=== PATIENT | female | born 1970 | race Caucasian/White ===

== ENCOUNTER 2016-08-14 03:45 | Inpatient (IN) | payer MEDICAID ==
[~2016-08-14] VITALS: Ht 162.6 cm; Wt 91.1 kg
[2016-08-14] MEDS ORDERED: SODIUM CHLORIDE FLUSH 10ML SYR IVF ONE (05:00)
[2016-08-14] MEDS ORDERED: AMPICILLIN/SULBACTAM 3 GM in SODIUM CHLORIDE 0.9% 100 ML IVPB ONE (05:00)
[2016-08-14 05:57] LABS: HEMOGLOBIN 12.5 g/dL (11.7-16.4)
[2016-08-14] MEDS ORDERED: SODIUM CHLORIDE 0.9% 1,000 ML IV ONE (06:57)
[2016-08-14] MEDS ORDERED: SODIUM CHLORIDE 0.9% 1,000ML IVBOLUS ONE (07:00)
[2016-08-14 07:52] LABS: BLOOD UREA NITROGEN 10 mg/dL (7-18)
[2016-08-14] MEDS ORDERED: SODIUM CHLORIDE FLUSH 10ML SYR IVF PRN (08:00)
[2016-08-14 09:49] VITALS: BP 148/89
[2016-08-14] MEDS: ENOXAPARIN 40 MG/0.4 ML SQ SCH (11:30)
[2016-08-14] MEDS ORDERED: DOCUSATE 100 MG CAPSULE PO PRN (11:30)
[2016-08-14] MEDS ORDERED: ONDANSETRON 2MG/ML, 2ML IVP PRN (11:30)
[2016-08-14] MEDS ORDERED: LABETALOL 5MG/ML, 20ML IV PRN (11:30)
[2016-08-14] MEDS ORDERED: ONDANSETRON ODT 4 MG PO PRN (11:30)
[2016-08-14] MEDS ORDERED: POLYETHYLENE GLYCOL 17 GM PACKET PO PRN (11:30)
[2016-08-14] MEDS ORDERED: GUAIFENESIN/DM 200-20MG, 10ML UDC PO PRN (11:30)
[2016-08-14] MEDS: SODIUM CHLORIDE 0.9% 1,000 ML IV SCH ×2 (12:18→21:26)
[2016-08-14] MEDS: AMPICILLIN/SULBACTAM 3 GM in SODIUM CHLORIDE 0.9% 100 ML IV SCH ×3 (12:40→23:47)
[2016-08-14 13:11] LABS: C-REACTIVE PROTEIN, QUANT 0.86 mg/dL (0.02-0.49)
[2016-08-14 13:12] LABS: DAU SCREEN DISCLAIMER
[2016-08-14 13:16] LABS: PATH.CAST-FLAG NOT PRESENT; SPERM-FLAG NOT PRESENT; SRC-FLAG NOT PRESENT; XTAL-FLAG NOT PRESENT; YLC-FLAG NOT PRESENT
[2016-08-14 13:18] VITALS: BP 136/87
[2016-08-14] MEDS: NICOTINE 21 MG/24 HR PATCH.TD24 TD SCH (19:47)
[2016-08-14 19:55] VITALS: BP 126/78
[2016-08-14] MEDS: FAMOTIDINE 20 MG/2 ML IV SCH (21:54)
[2016-08-15 01:56] VITALS: BP 130/80
[2016-08-15] MEDS: AMPICILLIN/SULBACTAM 3 GM in SODIUM CHLORIDE 0.9% 100 ML IV SCH ×4 (05:44→23:33)
[2016-08-15] MEDS: SODIUM CHLORIDE 0.9% 1,000 ML IV SCH ×2 (05:45→17:54)
[2016-08-15 06:07] LABS: BLOOD UREA NITROGEN 17 mg/dL (7-18)
[2016-08-15 07:12] VITALS: BP 144/74
[2016-08-15] MEDS ORDERED: CYANOCOBALAMIN 1,000 MCG/ML, 1ML IM ONE (07:30)
[2016-08-15] MEDS: FAMOTIDINE 20 MG/2 ML IV SCH ×2 (09:28→20:18)
[2016-08-15] MEDS: ENOXAPARIN 40 MG/0.4 ML SQ SCH (11:51)
[2016-08-15 13:56] VITALS: BP 143/81
[2016-08-15 18:36] VITALS: BP 144/80
[2016-08-15] MEDS: NICOTINE 21 MG/24 HR PATCH.TD24 TD SCH (20:18)
[2016-08-16 00:43] VITALS: BP 111/68
[2016-08-16] MEDS: AMPICILLIN/SULBACTAM 3 GM in SODIUM CHLORIDE 0.9% 100 ML IV SCH (05:09)
[2016-08-16] MEDS: SODIUM CHLORIDE 0.9% 1,000 ML IV SCH (05:09)
[2016-08-16] MEDS ORDERED: CYANOCOBALAMIN 1,000 MCG TABLET PO SCH (07:30)
== END 2016-08-16 07:25 | disposition left against medical advice (07) | DRG 603 ==
LOC: ED 07:06 → EDIP 07:45 → 4WST 09:38
PROVIDERS: ADMIT Hospitalist; ATTEND Hospitalist
PROC: 0T9B70Z Drainage of Bladder with Drainage Device, Via Natural or Artificial Opening (ICD-10-PCS; principal; 2016-08-14)
DX: L03.115 Cellulitis of right lower limb (principal); E44.1 Mild protein-calorie malnutrition; N39.0 Urinary tract infection, site not specified; F31.9 Bipolar disorder, unspecified; G60.0 Hereditary motor and sensory neuropathy; M19.90 Unspecified osteoarthritis, unspecified site; D64.9 Anemia, unspecified; L03.116 Cellulitis of left lower limb; R62.50 Unspecified lack of expected normal physiological development in childhood; F17.210 Nicotine dependence, cigarettes, uncomplicated; R73.9 Hyperglycemia, unspecified; F15.10 Other stimulant abuse, uncomplicated; Z53.21 Procedure and treatment not carried out due to patient leaving prior to being seen by health care provider; Z88.1 Allergy status to other antibiotic agents; Z68.34 Body mass index [BMI] 34.0-34.9, adult
CPT/HCPCS: 36415; 70450; 71010; 80048; 80061; 80307; 81001; 82040; 82140; 82607; 82746; 82962; 83036; 83605; 83735; 84100; 84145; 84439; 84443; 85025; 85651; 86140; 87040; 87086; 96365; 96372; J0295; J1650; J3420; J7030; S0028

== ENCOUNTER 2016-12-31 01:49 | Inpatient (IN) | payer MEDICAID ==
[~2016-12-31] VITALS: Ht 162.6 cm; Wt 88.3 kg
[2016-12-31 04:11] LABS: HEMATOCRIT 33.6 % (34.6-47.8); HEMOGLOBIN 10.8 g/dL (11.7-16.4)
[2016-12-31 04:23] LABS: ASPARTATE AMINO TRANSFERASE 11 U/L (15-37); BLOOD UREA NITROGEN 16 mg/dL (7-18)
[2016-12-31] MEDS ORDERED: SODIUM CHLORIDE FLUSH 10ML SYR IVF ONE (05:30)
[2016-12-31] MEDS ORDERED: AMPICILLIN/SULBACTAM 3 GM in SODIUM CHLORIDE 0.9% 100 ML IVPB ONE (05:30)
[2016-12-31] MEDS ORDERED: VANCOMYCIN PER PHARMACY IV ONE (07:00)
[2016-12-31] MEDS ORDERED: VANCOMYCIN 1,400 MG in SODIUM CHLORIDE 0.9% 250 ML IV ONE (07:00)
[2016-12-31 09:30] VITALS: BP 109/71
[2016-12-31] MEDS ORDERED: SODIUM CHLORIDE 0.9% 1,000 ML IV SCH (10:21)
[2016-12-31] MEDS ORDERED: ENALAPRILAT 1.25 MG/ML, 2ML IVPush PRN (10:30)
[2016-12-31] MEDS ORDERED: ACETAMINOPHEN 325 MG TABLET PO PRN (10:30)
[2016-12-31] MEDS ORDERED: OXYcodone IR 5MG TABLET PO PRN (10:30)
[2016-12-31] MEDS ORDERED: POLYETHYLENE GLYCOL 17 GM PACKET PO PRN (10:30)
[2016-12-31] MEDS ORDERED: DOCUSATE 100 MG CAPSULE PO PRN (10:30)
[2016-12-31] MEDS ORDERED: hydrALAzine 20 MG/ML, 1ML IVPush PRN (10:30)
[2016-12-31] MEDS ORDERED: MORPHINE SULFATE 4 MG/ML, 1ML IVPush PRN (10:30)
[2016-12-31] MEDS ORDERED: BISACODYL 10 MG SUPP PR PRN (10:30)
[2016-12-31] MEDS ORDERED: VANCOMYCIN PMX 1GM/200ML 200 ML IV ONE (10:30)
[2016-12-31] MEDS ORDERED: ONDANSETRON 2MG/ML, 2ML IVPush PRN (10:30)
[2016-12-31] MEDS ORDERED: VANCOMYCIN PER PHARMACY MC PRN (12:00)
[2016-12-31] MEDS ORDERED: PHARMACOKINETIC MONITORING MC PRN (12:00)
[2016-12-31 12:01] LABS: FERRITIN 59.6 ng/mL (8-252); TOTAL IRON BINDING CAPACITY 278 mcg/dL (250-450); TRANSFERRIN 235 mg/dL (200-360)
[2016-12-31 15:13] VITALS: BP 114/70
[2016-12-31 16:54] LABS: PATH.CAST-FLAG NOT PRESENT; SPERM-FLAG NOT PRESENT; SRC-FLAG NOT PRESENT; XTAL-FLAG NOT PRESENT; YLC-FLAG NOT PRESENT
[2016-12-31 18:12] VITALS: BP 115/74
[2016-12-31] MEDS: PIPERACILLIN/TAZO/PMX 3.375GM 50 ML IV SCH (22:40)
[2016-12-31] MEDS: HEPARIN 5,000 UNITS/ML, 1ML SQ SCH (22:41)
[2016-12-31] MEDS: NICOTINE 14MG/24 HR PATCH.TD24 TD SCH (22:41)
[2017-01-01] MEDS: VANCOMYCIN 1,400 MG in SODIUM CHLORIDE 0.9% 250 ML IV SCH ×2 (00:16→12:49)
[2017-01-01 00:19] VITALS: BP 121/75
[2017-01-01] MEDS: PIPERACILLIN/TAZO/PMX 3.375GM 50 ML IV SCH ×4 (05:19→22:38)
[2017-01-01] MEDS: HEPARIN 5,000 UNITS/ML, 1ML SQ SCH ×3 (05:19→22:19)
[2017-01-01 05:48] LABS: HEMATOCRIT 31.4 % (34.6-47.8); HEMOGLOBIN 10.3 g/dL (11.7-16.4); WHITE BLOOD COUNT 8.5 x10^3/uL (3.4-10)
[2017-01-01 05:58] LABS: ASPARTATE AMINO TRANSFERASE 12 U/L (15-37); BLOOD UREA NITROGEN 13 mg/dL (7-18)
[2017-01-01 08:07] VITALS: BP 107/67
[2017-01-01 14:39] VITALS: BP 144/86
[2017-01-01] MEDS: FERROUS SULFATE 325 MG TABLET PO SCH (17:52)
[2017-01-01] MEDS ORDERED: hydrALAzine 20 MG/ML, 1ML IVPush PRN (19:00)
[2017-01-01] MEDS ORDERED: ENALAPRILAT 1.25 MG/ML, 2ML IVPush PRN (19:00)
[2017-01-01] MEDS ORDERED: MORPHINE SULFATE 4 MG/ML, 1ML IVPush PRN (19:00)
[2017-01-01] MEDS ORDERED: VANCOMYCIN PER PHARMACY MC PRN (19:00)
[2017-01-01] MEDS ORDERED: DOCUSATE 100 MG CAPSULE PO PRN (19:00)
[2017-01-01] MEDS ORDERED: PHARMACOKINETIC MONITORING MC PRN (19:00)
[2017-01-01] MEDS ORDERED: POLYETHYLENE GLYCOL 17 GM PACKET PO PRN (19:00)
[2017-01-01] MEDS ORDERED: ONDANSETRON 2MG/ML, 2ML IVPush PRN (19:00)
[2017-01-01] MEDS ORDERED: BISACODYL 10 MG SUPP PR PRN (19:00)
[2017-01-01] MEDS: NICOTINE 14MG/24 HR PATCH.TD24 TD SCH (22:22)
[2017-01-01 22:28] VITALS: BP 138/89
[2017-01-02] MEDS: VANCOMYCIN 1,400 MG in SODIUM CHLORIDE 0.9% 250 ML IV SCH (00:22)
[2017-01-02] MEDS: ACETAMINOPHEN 325 MG TABLET PO PRN ×3 (00:29→22:07)
[2017-01-02] MEDS: OXYcodone IR 5MG TABLET PO PRN ×3 (00:29→22:07)
[2017-01-02 02:24] VITALS: BP 121/74
[2017-01-02] MEDS: HEPARIN 5,000 UNITS/ML, 1ML SQ SCH ×3 (05:48→21:54)
[2017-01-02] MEDS: PIPERACILLIN/TAZO/PMX 3.375GM 50 ML IV SCH ×4 (05:50→23:39)
[2017-01-02 07:00] VITALS: BP 123/78
[2017-01-02 07:02] VITALS: BP 99/65
[2017-01-02] MEDS: FERROUS SULFATE 325 MG TABLET PO SCH ×2 (08:36→16:55)
[2017-01-02 14:06] VITALS: BP 115/77
[2017-01-02] MEDS ORDERED: CLIN300C93 PO (16:58)
[2017-01-02 19:12] VITALS: BP 127/82
[2017-01-02] MEDS: NICOTINE 14MG/24 HR PATCH.TD24 TD SCH (21:54)
[2017-01-03 02:37] VITALS: BP 111/71
[2017-01-03] MEDS: ACETAMINOPHEN 325 MG TABLET PO PRN ×2 (04:52→23:50)
[2017-01-03] MEDS: HEPARIN 5,000 UNITS/ML, 1ML SQ SCH ×3 (04:52→22:38)
[2017-01-03] MEDS: OXYcodone IR 5MG TABLET PO PRN ×3 (04:52→23:50)
[2017-01-03] MEDS: PIPERACILLIN/TAZO/PMX 3.375GM 50 ML IV SCH ×4 (05:01→22:38)
[2017-01-03 05:29] LABS: HEMATOCRIT 31.6 % (34.6-47.8); HEMOGLOBIN 10.4 g/dL (11.7-16.4); WHITE BLOOD COUNT 7.6 x10^3/uL (3.4-10)
[2017-01-03 05:30] LABS: BLOOD UREA NITROGEN 13 mg/dL (7-18)
[2017-01-03 07:15] VITALS: BP 108/68
[2017-01-03] MEDS: FERROUS SULFATE 325 MG TABLET PO SCH ×2 (08:29→17:47)
[2017-01-03] MEDS ORDERED: VANCOMYCIN PER PHARMACY MC PRN (11:00)
[2017-01-03] MEDS ORDERED: PHARMACOKINETIC MONITORING MC PRN (11:30)
[2017-01-03] MEDS ORDERED: VANCOMYCIN PMX 1GM/200ML 200 ML IV SCH (12:00)
[2017-01-03 14:35] VITALS: BP 107/74
[2017-01-03 19:46] VITALS: BP 110/69
[2017-01-03] MEDS: NICOTINE 14MG/24 HR PATCH.TD24 TD SCH (22:38)
[2017-01-04] MEDS ORDERED: VANCOMYCIN 1,400 MG in SODIUM CHLORIDE 0.9% 250 ML IV SCH (01:00)
[2017-01-04 02:45] VITALS: BP 111/60
[2017-01-04] MEDS: PIPERACILLIN/TAZO/PMX 3.375GM 50 ML IV SCH (05:00)
[2017-01-04] MEDS: HEPARIN 5,000 UNITS/ML, 1ML SQ SCH (05:01)
[2017-01-04 05:29] LABS: HEMATOCRIT 29.8 % (34.6-47.8); HEMOGLOBIN 9.6 g/dL (11.7-16.4); WHITE BLOOD COUNT 8.9 x10^3/uL (3.4-10)
[2017-01-04 05:32] LABS: BLOOD UREA NITROGEN 17 mg/dL (7-18)
[2017-01-04 07:30] VITALS: BP 134/101
[2017-01-04] MEDS: FERROUS SULFATE 325 MG TABLET PO SCH (08:21)
== END 2017-01-04 09:00 | disposition left against medical advice (07) | DRG 602 ==
LOC: ED 07:48 → EDIP 07:49 → ED 08:02 → 4NOR 09:22
PROVIDERS: ADMIT Internal Medicine; ATTEND Internal Medicine
PROC: 02HV33Z Insertion of Infusion Device into Superior Vena Cava, Percutaneous Approach (ICD-10-PCS; principal; 2016-12-31)
PROC: B548ZZA Ultrasonography of Superior Vena Cava, Guidance (ICD-10-PCS; 2016-12-31)
DX: L03.115 Cellulitis of right lower limb (principal); E43 Unspecified severe protein-calorie malnutrition; D50.9 Iron deficiency anemia, unspecified; F15.10 Other stimulant abuse, uncomplicated; F17.210 Nicotine dependence, cigarettes, uncomplicated; F31.9 Bipolar disorder, unspecified; G60.0 Hereditary motor and sensory neuropathy; Z99.3 Dependence on wheelchair; K43.9 Ventral hernia without obstruction or gangrene; M19.90 Unspecified osteoarthritis, unspecified site; Z88.1 Allergy status to other antibiotic agents; Z88.2 Allergy status to sulfonamides; Z88.8 Allergy status to other drugs, medicaments and biological substances; Z68.33 Body mass index [BMI] 33.0-33.9, adult
CPT/HCPCS: 36415; 36569; 76937; 77001; 80048; 80053; 80061; 81001; 82306; 82607; 82728; 82746; 83036; 83540; 83550; 83605; 83735; 83880; 84145; 84439; 84443; 84466; 85025; 85651; 86140; 87040; 87070; 87077; 87086; 87186; 87205; 96365; J0295; J1644; J2405; J2543; J3370; C1751; J7030; J7050

== ENCOUNTER 2017-03-09 06:07 | Emergency (ER) | payer MEDICAID ==
[~2017-03-09] VITALS: Ht 162.6 cm; Wt 75.0 kg
[~2017-03-09 06:07] MED LIST: CLIN300C8 PO
[2017-03-09 06:13] VITALS: BP 137/88
== END 2017-03-09 08:21 | disposition home or self-care (01) ==
LOC: ED 06:28
DX: L89.512 Pressure ulcer of right ankle, stage 2 (principal); F31.9 Bipolar disorder, unspecified; Z59.0 Homelessness
CPT/HCPCS: 99283

== ENCOUNTER 2017-04-17 21:09 | Emergency (ER) | payer MEDICAID ==
[~2017-04-17] VITALS: Ht 162.6 cm; Wt 70.0 kg
[2017-04-17 21:59] LABS: HEMATOCRIT 33.8 % (34.6-47.8); HEMOGLOBIN 11.4 g/dL (11.7-16.4); WHITE BLOOD COUNT 5.8 x10^3/uL (3.4-10)
[2017-04-17 22:09] LABS: BLOOD UREA NITROGEN 17 mg/dL (7-18)
[2017-04-17 22:12] LABS: ASPARTATE AMINO TRANSFERASE 15 U/L (15-37)
[2017-04-17 23:15] VITALS: BP 120/65
== END 2017-04-17 23:38 | disposition home or self-care (01) ==
LOC: ED 21:51
DX: L03.115 Cellulitis of right lower limb (principal); G60.0 Hereditary motor and sensory neuropathy; F17.200 Nicotine dependence, unspecified, uncomplicated; F15.10 Other stimulant abuse, uncomplicated
CPT/HCPCS: 36415; 80053; 85025; 93970; 99285

== ENCOUNTER 2017-04-28 11:25 | Emergency (ER) | payer MEDICAID ==
[~2017-04-28] VITALS: Ht 165.1 cm; Wt 68.2 kg
[2017-04-28 12:27] LABS: HEMATOCRIT 41.2 % (34.6-47.8); HEMOGLOBIN 13.7 g/dL (11.7-16.4); WHITE BLOOD COUNT 10.4 x10^3/uL (3.4-10)
[2017-04-28] MEDS ORDERED: KETOROLAC 30 MG/1 ML ONE (12:28)
[2017-04-28] MEDS ORDERED: KETOROLAC 30 MG/1 ML IM ONE (12:30)
[2017-04-28 12:38] LABS: BLOOD UREA NITROGEN 17 mg/dL (7-18)
[2017-04-28 14:54] VITALS: BP 133/87
== END 2017-04-28 14:56 | disposition home or self-care (01) ==
LOC: ED 12:27
DX: S29.012A Strain of muscle and tendon of back wall of thorax, initial encounter (principal); S39.012A Strain of muscle, fascia and tendon of lower back, initial encounter; N30.00 Acute cystitis without hematuria; Y08.89XA Assault by other specified means, initial encounter; Y93.89 Activity, other specified; Y99.8 Other external cause status; Y92.89 Other specified places as the place of occurrence of the external cause
CPT/HCPCS: 36415; 72072; 72110; 80048; 81001; 82040; 85025; 87086; 96372; 99285; J1885

== ENCOUNTER 2017-05-20 21:06 | Emergency (ER) | payer MEDICAID ==
[~2017-05-20] VITALS: Ht 162.6 cm; Wt 87.0 kg
[2017-05-20 22:58] LABS: HEMATOCRIT 34.6 % (34.6-47.8); HEMOGLOBIN 11.5 g/dL (11.7-16.4); WHITE BLOOD COUNT 17.2 x10^3/uL (3.4-10)
[2017-05-20 23:08] LABS: DAU SCREEN DISCLAIMER; HCG UR LOT HCG7060132
[2017-05-20 23:09] LABS: ASPARTATE AMINO TRANSFERASE 12 U/L (15-37); BLOOD UREA NITROGEN 9 mg/dL (7-18)
[2017-05-20 23:14] LABS: HCG UR OBC PASS
[2017-05-20 23:24] LABS: DIFF TOTAL CELLS COUNTED 100 CELL DIFF
[2017-05-20 23:25] LABS: VERIFY COUNTS? YES
[2017-05-20 23:36] LABS: RAPID INFLUENZA A Negative (Negative); RAPID INFLUENZA B Negative (Negative)
[2017-05-21] MEDS ORDERED: OMNIPAQUE 350 MG/ML, 100ML BOTTLE ONE (00:20)
[2017-05-21] MEDS ORDERED: SODIUM CHLORIDE 0.9% 1,000ML IVBOLUS ONE (00:30)
[2017-05-21 01:10] VITALS: BP 138/80
== END 2017-05-21 02:00 | disposition home or self-care (01) ==
LOC: ED 21:50
DX: A09 Infectious gastroenteritis and colitis, unspecified (principal); F15.10 Other stimulant abuse, uncomplicated; F17.200 Nicotine dependence, unspecified, uncomplicated
CPT/HCPCS: 36415; 71010; 74177; 80053; 80307; 81003; 81025; 83690; 85025; 87400; 96360; 96361; 99285; J7030; Q9967; G0479

== ENCOUNTER 2017-05-29 20:03 | Emergency (ER) | payer MEDICAID ==
[~2017-05-29] VITALS: Ht 162.6 cm; Wt 89.1 kg
[2017-05-29 20:11] VITALS: BP 100/67
== END 2017-05-29 21:54 | disposition home or self-care (01) ==
LOC: ED 21:40
DX: S39.012A Strain of muscle, fascia and tendon of lower back, initial encounter (principal); X58.XXXA Exposure to other specified factors, initial encounter; Y93.89 Activity, other specified; Y92.89 Other specified places as the place of occurrence of the external cause; Y99.8 Other external cause status
CPT/HCPCS: 72110; 99284

== ENCOUNTER 2017-07-11 01:31 | Emergency (ER) | payer MEDICAID ==
[~2017-07-11] VITALS: Ht 162.6 cm; Wt 84.5 kg
[2017-07-11 01:34] VITALS: BP 142/90
== END 2017-07-11 02:31 | disposition home or self-care (01) ==
LOC: ED 01:43
DX: Z00.00 Encounter for general adult medical examination without abnormal findings (principal); Z59.0 Homelessness; F31.9 Bipolar disorder, unspecified
CPT/HCPCS: 99283

== ENCOUNTER 2017-07-11 10:59 | Emergency (ER) | payer MEDICAID ==
[~2017-07-11] VITALS: Ht 162.6 cm; Wt 70.0 kg
[2017-07-11 12:18] VITALS: BP 133/100
[2017-07-11] MEDS ORDERED: SODIUM CHLORIDE FLUSH 10ML SYR IVF ONE (13:00)
== END 2017-07-11 13:21 | disposition home or self-care (01) ==
LOC: ED 11:25
DX: Z72.9 Problem related to lifestyle, unspecified (principal)
CPT/HCPCS: 93005; 99283

== ENCOUNTER 2017-09-07 23:25 | Emergency (ER) | payer MEDICAID ==
[~2017-09-07] VITALS: Ht 162.6 cm; Wt 81.0 kg
[2017-09-08 00:57] VITALS: BP 149/78
== END 2017-09-08 00:58 | disposition home or self-care (01) ==
LOC: ED 23:59
DX: R60.0 Localized edema (principal); M14.671 Charcot's joint, right ankle and foot; Z72.9 Problem related to lifestyle, unspecified; F19.10 Other psychoactive substance abuse, uncomplicated; F10.10 Alcohol abuse, uncomplicated; F31.9 Bipolar disorder, unspecified
CPT/HCPCS: 99283

== ENCOUNTER 2017-10-04 02:57 | Emergency (ER) | payer MEDICAID ==
[~2017-10-04] VITALS: Ht 162.6 cm; Wt 65.0 kg
[2017-10-04 03:00] VITALS: BP 133/80
== END 2017-10-04 04:00 | disposition left against medical advice (07) ==
LOC: ED 03:42
DX: L89.892 Pressure ulcer of other site, stage 2 (principal); L03.116 Cellulitis of left lower limb; F31.9 Bipolar disorder, unspecified; M19.90 Unspecified osteoarthritis, unspecified site; F17.200 Nicotine dependence, unspecified, uncomplicated; Z88.2 Allergy status to sulfonamides
CPT/HCPCS: 99283

== ENCOUNTER 2017-10-20 16:22 | Inpatient (IN) | payer MEDICAID ==
[~2017-10-20] VITALS: Ht 152.4 cm; Wt 93.1 kg
[2017-10-20] MEDS ORDERED: SODIUM CHLORIDE 0.9% 1,000ML IVBOLUS ONE (17:00)
[2017-10-20] MEDS ORDERED: SODIUM CHLORIDE FLUSH 10ML SYR IVF ONE (17:00)
[2017-10-20] MEDS ORDERED: CLINDAMYCIN PMX 900MG/50ML 50 ML IVPB ONE (17:00)
[2017-10-20 17:57] LABS: BASOPHILS # (AUTO) 0.03 x10^3/uL (0-0.1); BASOPHILS % (AUTO) 1 % (0-1); EOSINOPHILS # (AUTO) 0.12 x10^3/uL (0-0.4); EOSINOPHILS % (AUTO) 2 % (1-7); HCT (SEDRATE) 35.2 % (34.6-47.8); LYMPHOCYTES % (AUTO) 21 % (22-44); MD NO; MEAN CORPUSCULAR HEMOGLOBIN 28.9 pg (27.0-34.8); MEAN CORPUSCULAR HGB CONC 33.7 g/dL (32.4-35.8); MEAN CORPUSCULAR VOLUME 85.6 fL (80-100); MEAN PLATELET VOLUME 7.9 fL (7.4-10.4); MONOCYTES # (AUTO) 0.69 x10^3/uL (0.2-0.8); MONOCYTES % (AUTO) 11 % (2-9); NEUTROPHILS # (AUTO) 4.17 x10^3/uL (1.8-6.8); NEUTROPHILS % (AUTO) 66 % (42-75); PLATELET COUNT 285 x10^3/uL (130-400); RED BLOOD COUNT 4.11 x10^6/uL (3.82-5.3); RED CELL DISTRIBUTION WIDTH 14.8 % (9.6-15.2)
[2017-10-20 18:07] LABS: ALANINE AMINOTRANSFERASE 16 U/L (12-78); ALBUMIN 2.7 g/dL (3.4-5.0); ANION GAP 7 mmol/L (5-15); CALCIUM 8.2 mg/dL (8.5-10.1); CHLORIDE 102 mmol/L (98-107); CREATININE 0.55 mg/dL (0.55-1.02)
[2017-10-20 18:13] LABS: ALKALINE PHOSPHATASE 90 U/L (45-117); BILIRUBIN,TOTAL 0.3 mg/dL (0.2-1.0); TOTAL PROTEIN 7.5 g/dL (6.4-8.2)
[2017-10-20 18:30] LABS: SEDIMENTATION RATE 91 mm/hr (0-20)
[2017-10-20] MEDS ORDERED: CLINDAMYCIN PMX 900MG/50ML 50 ML ONE (19:16)
[2017-10-20 19:37] LABS: SALICYLATE LEVEL 2.2 mg/dL (2.8-20.0)
[2017-10-20 19:38] LABS: ACETAMINOPHEN < 2 mcg/mL (10-30)
[2017-10-20] MEDS ORDERED: SODIUM CHLORIDE FLUSH 10ML SYR IVF PRN (20:00)
[2017-10-20] MEDS ORDERED: DOCUSATE 100 MG CAPSULE PO PRN (21:00)
[2017-10-20] MEDS ORDERED: LABETALOL 5MG/ML, 20ML IVPush PRN (21:00)
[2017-10-20] MEDS ORDERED: ONDANSETRON 2MG/ML, 2ML IVPush PRN (21:00)
[2017-10-20] MEDS ORDERED: ONDANSETRON ODT 4 MG PO PRN (21:00)
[2017-10-20] MEDS: D5%-0.45NACL+KCL 20MEQ 1,000 ML IV SCH (22:51)
[2017-10-20] MEDS: ENOXAPARIN 40 MG/0.4 ML SQ SCH (22:51)
[2017-10-20] MEDS: CLINDAMYCIN PMX 900MG/50ML 50 ML IV SCH (22:52)
[2017-10-20] MEDS: NICOTINE 14MG/24 HR PATCH.TD24 TD SCH (22:52)
[2017-10-20 23:50] LABS: AMPHETAMINE SCREEN, URINE Positive (Negative); BARBITURATE SCREEN, URINE Negative (Negative); BENZODIAZEPINE SCREEN, URINE Negative (Negative); CANNABINOID SCREEN, URINE Negative (Negative); COCAINE SCREEN, URINE Negative (Negative); METHADONE SCREEN, URINE Negative (Negative); OPIATE SCREEN, URINE Negative (Negative)
[2017-10-21 01:18] VITALS: BP 161/82
[2017-10-21] MEDS: CLINDAMYCIN PMX 900MG/50ML 50 ML IV SCH (05:45)
[2017-10-21 06:13] LABS: BASOPHILS # (AUTO) 0.02 x10^3/uL (0-0.1); BASOPHILS % (AUTO) 0 % (0-1); EOSINOPHILS # (AUTO) 0.14 x10^3/uL (0-0.4); EOSINOPHILS % (AUTO) 2 % (1-7); LYMPHOCYTES # (AUTO) 1.57 x10^3/uL (1-3.4); LYMPHOCYTES % (AUTO) 25 % (22-44); MD NO; MEAN CORPUSCULAR HEMOGLOBIN 28.6 pg (27.0-34.8); MEAN CORPUSCULAR HGB CONC 33.3 g/dL (32.4-35.8); MONOCYTES # (AUTO) 0.96 x10^3/uL (0.2-0.8); MONOCYTES % (AUTO) 15 % (2-9); NEUTROPHILS # (AUTO) 3.58 x10^3/uL (1.8-6.8); NEUTROPHILS % (AUTO) 57 % (42-75); PLATELET COUNT 268 x10^3/uL (130-400); RED BLOOD COUNT 3.95 x10^6/uL (3.82-5.3)
[2017-10-21 06:22] LABS: CHLORIDE 106 mmol/L (98-107)
[2017-10-21 06:31] LABS: ALANINE AMINOTRANSFERASE 20 U/L (12-78); ALBUMIN 2.2 g/dL (3.4-5.0); ALKALINE PHOSPHATASE 81 U/L (45-117); ANION GAP 7 mmol/L (5-15); BILIRUBIN,TOTAL 0.3 mg/dL (0.2-1.0); CALCIUM 7.8 mg/dL (8.5-10.1); CREATININE 0.47 mg/dL (0.55-1.02); TOTAL PROTEIN 6.6 g/dL (6.4-8.2)
[2017-10-21 08:08] VITALS: BP 120/83
[2017-10-21] MEDS: D5%-0.45NACL+KCL 20MEQ 1,000 ML IV SCH (08:30)
[2017-10-21] MEDS: ACETAMINOPHEN 325 MG TABLET PO PRN ×2 (11:48→22:52)
[2017-10-21] MEDS ORDERED: VANCOMYCIN PER PHARMACY MC PRN (12:00)
[2017-10-21] MEDS: MEROPENEM 1 GM in SODIUM CHLORIDE 0.9% 100 ML IV SCH (13:33)
[2017-10-21] MEDS ORDERED: PHARMACOKINETIC MONITORING MC PRN (14:00)
[2017-10-21 14:11] VITALS: BP 111/63
[2017-10-21] MEDS: VANCOMYCIN 1,800 MG in SODIUM CHLORIDE 0.9% 250 ML IV SCH (14:42)
[2017-10-21] MEDS ORDERED: DIPHENHYDRAMINE 25 MG CAPSULE PO PRN (16:30)
[2017-10-21 19:01] VITALS: BP 132/83
[2017-10-21] MEDS: ENOXAPARIN 40 MG/0.4 ML SQ SCH (21:00)
[2017-10-21] MEDS: TRAZODONE 50MG TABLET PO PRN ×2 (21:56→22:52)
[2017-10-21] MEDS: NICOTINE 14MG/24 HR PATCH.TD24 TD SCH (21:57)
[2017-10-22 00:58] VITALS: BP 131/81
[2017-10-22] MEDS: MEROPENEM 1 GM in SODIUM CHLORIDE 0.9% 100 ML IV SCH ×2 (01:18→13:46)
[2017-10-22] MEDS: VANCOMYCIN 1,800 MG in SODIUM CHLORIDE 0.9% 250 ML IV SCH ×2 (02:46→13:46)
[2017-10-22 07:31] VITALS: BP 121/78
[2017-10-22 08:18] LABS: BASOPHILS # (AUTO) 0.03 x10^3/uL (0-0.1); BASOPHILS % (AUTO) 1 % (0-1); EOSINOPHILS % (AUTO) 3 % (1-7); LYMPHOCYTES % (AUTO) 35 % (22-44); MD NO; MEAN CORPUSCULAR HGB CONC 32.7 g/dL (32.4-35.8); MEAN CORPUSCULAR VOLUME 85.5 fL (80-100); MEAN PLATELET VOLUME 7.8 fL (7.4-10.4); MONOCYTES # (AUTO) 0.75 x10^3/uL (0.2-0.8); MONOCYTES % (AUTO) 13 % (2-9); NEUTROPHILS # (AUTO) 2.88 x10^3/uL (1.8-6.8); NEUTROPHILS % (AUTO) 48 % (42-75); PLATELET COUNT 267 x10^3/uL (130-400); RED BLOOD COUNT 3.91 x10^6/uL (3.82-5.3); RED CELL DISTRIBUTION WIDTH 15.4 % (9.6-15.2)
[2017-10-22 08:26] LABS: ALANINE AMINOTRANSFERASE 14 U/L (12-78); ALBUMIN 2.1 g/dL (3.4-5.0); ANION GAP 4 mmol/L (5-15); CALCIUM 8.1 mg/dL (8.5-10.1); CHLORIDE 111 mmol/L (98-107); CREATININE 0.45 mg/dL (0.55-1.02)
[2017-10-22 08:29] LABS: ALKALINE PHOSPHATASE 70 U/L (45-117); BILIRUBIN,TOTAL 0.1 mg/dL (0.2-1.0); TOTAL PROTEIN 6.3 g/dL (6.4-8.2)
[2017-10-22] MEDS: HEPARIN 5,000 UNITS/ML, 1ML SQ SCH ×2 (10:54→17:30)
[2017-10-22 15:48] VITALS: BP 141/94
[2017-10-22 21:27] VITALS: BP 134/84
[2017-10-22] MEDS: TRAZODONE 50MG TABLET PO PRN (22:08)
[2017-10-22] MEDS: NICOTINE 14MG/24 HR PATCH.TD24 TD SCH (22:09)
[2017-10-23] MEDS: MEROPENEM 1 GM in SODIUM CHLORIDE 0.9% 100 ML IV SCH ×2 (01:06→14:52)
[2017-10-23] MEDS: HEPARIN 5,000 UNITS/ML, 1ML SQ SCH ×3 (01:47→17:30)
[2017-10-23] MEDS: VANCOMYCIN 1,800 MG in SODIUM CHLORIDE 0.9% 250 ML IV SCH ×2 (02:03→14:00)
[2017-10-23 03:42] VITALS: BP 132/84
[2017-10-23 05:22] LABS: BASOPHILS # (AUTO) 0.03 x10^3/uL (0-0.1); BASOPHILS % (AUTO) 1 % (0-1); EOSINOPHILS # (AUTO) 0.19 x10^3/uL (0-0.4); EOSINOPHILS % (AUTO) 3 % (1-7); LYMPHOCYTES # (AUTO) 2.52 x10^3/uL (1-3.4); LYMPHOCYTES % (AUTO) 41 % (22-44); MD NO; MEAN CORPUSCULAR HEMOGLOBIN 28.2 pg (27.0-34.8); MEAN CORPUSCULAR HGB CONC 32.7 g/dL (32.4-35.8); MEAN CORPUSCULAR VOLUME 86.2 fL (80-100); MONOCYTES # (AUTO) 0.59 x10^3/uL (0.2-0.8); MONOCYTES % (AUTO) 10 % (2-9); NEUTROPHILS # (AUTO) 2.82 x10^3/uL (1.8-6.8); NEUTROPHILS % (AUTO) 46 % (42-75); PLATELET COUNT 300 x10^3/uL (130-400); RED CELL DISTRIBUTION WIDTH 15.1 % (9.6-15.2)
[2017-10-23 05:24] LABS: ALANINE AMINOTRANSFERASE 17 U/L (12-78); ALBUMIN 2.2 g/dL (3.4-5.0); ANION GAP 5 mmol/L (5-15); CALCIUM 8.2 mg/dL (8.5-10.1); CHLORIDE 106 mmol/L (98-107); CREATININE 0.48 mg/dL (0.55-1.02)
[2017-10-23 05:27] LABS: ALKALINE PHOSPHATASE 76 U/L (45-117); BILIRUBIN,TOTAL 0.4 mg/dL (0.2-1.0); TOTAL PROTEIN 6.7 g/dL (6.4-8.2)
[2017-10-23 07:25] VITALS: BP 128/82
[2017-10-23 13:33] VITALS: BP 130/83
[2017-10-23 19:44] VITALS: BP 129/76
[2017-10-23] MEDS: NICOTINE 14MG/24 HR PATCH.TD24 TD SCH (20:19)
[2017-10-24] MEDS: TRAZODONE 50MG TABLET PO PRN (01:29)
[2017-10-24] MEDS: HEPARIN 5,000 UNITS/ML, 1ML SQ SCH ×2 (01:29→08:35)
[2017-10-24] MEDS: MEROPENEM 1 GM in SODIUM CHLORIDE 0.9% 100 ML IV SCH ×2 (01:29→13:13)
[2017-10-24 01:39] VITALS: BP 137/75
[2017-10-24] MEDS: VANCOMYCIN 1,800 MG in SODIUM CHLORIDE 0.9% 250 ML IV SCH ×2 (02:20→15:32)
[2017-10-24 07:40] VITALS: BP 136/60
[2017-10-24 12:43] VITALS: BP 140/85
[2017-10-24] MEDS: ENOXAPARIN 40 MG/0.4 ML SQ SCH (13:13)
[2017-10-24 19:38] VITALS: BP 126/84
[2017-10-24] MEDS: NICOTINE 14MG/24 HR PATCH.TD24 TD SCH (20:54)
[2017-10-25] MEDS: MEROPENEM 1 GM in SODIUM CHLORIDE 0.9% 100 ML IV SCH ×2 (00:54→13:47)
[2017-10-25 00:58] VITALS: BP 114/67
[2017-10-25 07:29] VITALS: BP 121/84
[2017-10-25] MEDS: VANCOMYCIN 1,800 MG in SODIUM CHLORIDE 0.9% 250 ML IV SCH ×2 (09:05→19:15)
[2017-10-25] MEDS: ENOXAPARIN 40 MG/0.4 ML SQ SCH (13:00)
[2017-10-25 13:37] VITALS: BP 115/73
[2017-10-25 18:49] VITALS: BP 136/86
[2017-10-25] MEDS: NICOTINE 14MG/24 HR PATCH.TD24 TD SCH (20:41)
[2017-10-26] MEDS: MEROPENEM 1 GM in SODIUM CHLORIDE 0.9% 100 ML IV SCH ×2 (00:57→13:15)
[2017-10-26 01:25] VITALS: BP 120/81
[2017-10-26 04:44] LABS: AMPHETAMINE SCREEN, URINE Negative (Negative); BARBITURATE SCREEN, URINE Negative (Negative); BENZODIAZEPINE SCREEN, URINE Negative (Negative); CANNABINOID SCREEN, URINE Negative (Negative); COCAINE SCREEN, URINE Negative (Negative); METHADONE SCREEN, URINE Negative (Negative); OPIATE SCREEN, URINE Negative (Negative)
[2017-10-26 07:30] VITALS: BP 103/66
[2017-10-26] MEDS: VANCOMYCIN 1,800 MG in SODIUM CHLORIDE 0.9% 250 ML IV SCH (07:59)
[2017-10-26] MEDS ORDERED: MIDAZOLAM 1 MG/ML, 5ML ONE (09:33)
[2017-10-26] MEDS ORDERED: FENTANYL PF 100 MCG/2ML ONE (09:33)
[2017-10-26] MEDS: ENOXAPARIN 40 MG/0.4 ML SQ SCH (13:15)
[2017-10-26 13:30] VITALS: BP 118/79
== END 2017-10-26 14:23 | disposition left against medical advice (07) | DRG 603 ==
LOC: ED 19:28 → EDIP 19:58 → 3NE 21:32
PROVIDERS: ADMIT Internal Medicine; ATTEND Internal Medicine
DX: L03.115 Cellulitis of right lower limb (principal); E44.0 Moderate protein-calorie malnutrition; E87.1 Hypo-osmolality and hyponatremia; L89.512 Pressure ulcer of right ankle, stage 2; Z68.41 Body mass index [BMI] 40.0-44.9, adult; L03.116 Cellulitis of left lower limb; F11.10 Opioid abuse, uncomplicated; F17.200 Nicotine dependence, unspecified, uncomplicated; F31.9 Bipolar disorder, unspecified; L97.519 Non-pressure chronic ulcer of other part of right foot with unspecified severity; L97.529 Non-pressure chronic ulcer of other part of left foot with unspecified severity; M14.671 Charcot's joint, right ankle and foot; M14.672 Charcot's joint, left ankle and foot; Z53.21 Procedure and treatment not carried out due to patient leaving prior to being seen by health care provider
CPT/HCPCS: 36415; 80053; 80202; 80307; 80329; 83605; 84145; 85025; 85651; 86140; 87040; 87070; 87077; 87147; 87186; 87205; 96374; 99156; 99157; J1644; J1650; J2185; J2250; J3010; J3370; G0480; J3480; J7030; J7050; Q0163

== ENCOUNTER 2017-10-26 21:22 | Emergency (ER) | payer MEDICAID ==
[~2017-10-26] VITALS: Ht 165.1 cm; Wt 72.7 kg
[2017-10-26 21:25] VITALS: BP 138/88
== END 2017-10-26 23:27 | disposition home or self-care (01) ==
LOC: ED 23:20
DX: L03.115 Cellulitis of right lower limb (principal); L03.116 Cellulitis of left lower limb; F31.9 Bipolar disorder, unspecified; M19.90 Unspecified osteoarthritis, unspecified site; F17.200 Nicotine dependence, unspecified, uncomplicated; Z72.89 Other problems related to lifestyle; Z91.14 Patient's other noncompliance with medication regimen
CPT/HCPCS: 99283

== ENCOUNTER 2017-10-30 05:03 | Emergency (ER) | payer MEDICAID ==
[~2017-10-30] VITALS: Ht 167.6 cm; Wt 75.0 kg
[2017-10-30 05:07] VITALS: BP 126/75
[2017-10-30 06:05] LABS: BASOPHILS # (AUTO) 0.04 x10^3/uL (0-0.1); BASOPHILS % (AUTO) 1 % (0-1); EOSINOPHILS # (AUTO) 0.26 x10^3/uL (0-0.4); EOSINOPHILS % (AUTO) 3 % (1-7); LYMPHOCYTES # (AUTO) 2.91 x10^3/uL (1-3.4); LYMPHOCYTES % (AUTO) 31 % (22-44); MD NO; MEAN CORPUSCULAR HEMOGLOBIN 28.7 pg (27.0-34.8); MEAN CORPUSCULAR HGB CONC 33.3 g/dL (32.4-35.8); MEAN CORPUSCULAR VOLUME 86.2 fL (80-100); MEAN PLATELET VOLUME 7.9 fL (7.4-10.4); MONOCYTES # (AUTO) 1.23 x10^3/uL (0.2-0.8); MONOCYTES % (AUTO) 13 % (2-9); NEUTROPHILS # (AUTO) 4.91 x10^3/uL (1.8-6.8); NEUTROPHILS % (AUTO) 53 % (42-75); PLATELET COUNT 306 x10^3/uL (130-400); RED BLOOD COUNT 3.91 x10^6/uL (3.82-5.3); RED CELL DISTRIBUTION WIDTH 15.2 % (9.6-15.2)
[2017-10-30] MEDS ORDERED: BACITRACIN ZINC OINT 500U/GM, 0.9 GM ONE (06:26)
== END 2017-10-30 07:19 | disposition home or self-care (01) ==
LOC: ED 06:05
DX: L89.892 Pressure ulcer of other site, stage 2 (principal); L03.115 Cellulitis of right lower limb; F31.9 Bipolar disorder, unspecified; M19.90 Unspecified osteoarthritis, unspecified site; Z59.0 Homelessness; Z88.1 Allergy status to other antibiotic agents; Z88.2 Allergy status to sulfonamides; Z88.8 Allergy status to other drugs, medicaments and biological substances
CPT/HCPCS: 36415; 85025; 99285

== ENCOUNTER 2017-10-31 11:56 | Emergency (ER) | payer MEDICAID ==
[~2017-10-31] VITALS: Ht 162.6 cm; Wt 77.3 kg
[2017-10-31 14:14] LABS: BASOPHILS # (AUTO) 0.05 x10^3/uL (0-0.1); BASOPHILS % (AUTO) 1 % (0-1); EOSINOPHILS # (AUTO) 0.19 x10^3/uL (0-0.4); EOSINOPHILS % (AUTO) 2 % (1-7); LYMPHOCYTES # (AUTO) 2.73 x10^3/uL (1-3.4); LYMPHOCYTES % (AUTO) 25 % (22-44); MD NO; MEAN CORPUSCULAR HEMOGLOBIN 28.9 pg (27.0-34.8); MEAN CORPUSCULAR HGB CONC 33.4 g/dL (32.4-35.8); MEAN CORPUSCULAR VOLUME 86.4 fL (80-100); MONOCYTES % (AUTO) 10 % (2-9); NEUTROPHILS # (AUTO) 6.66 x10^3/uL (1.8-6.8); NEUTROPHILS % (AUTO) 62 % (42-75); PLATELET COUNT 294 x10^3/uL (130-400); RED BLOOD COUNT 3.66 x10^6/uL (3.82-5.3); RED CELL DISTRIBUTION WIDTH 15.1 % (9.6-15.2)
[2017-10-31 14:23] LABS: ANION GAP 5 mmol/L (5-15); CALCIUM 7.7 mg/dL (8.5-10.1); CHLORIDE 111 mmol/L (98-107); CREATININE 0.69 mg/dL (0.55-1.02)
[2017-10-31 14:33] VITALS: BP 122/86
== END 2017-10-31 14:56 | disposition home or self-care (01) ==
LOC: ED 14:50
DX: G89.29 Other chronic pain (principal); M79.671 Pain in right foot; Z79.899 Other long term (current) drug therapy
CPT/HCPCS: 36415; 80048; 80307; 85025; 99285

== ENCOUNTER 2017-11-23 12:57 | Inpatient (IN) | payer MEDICAID ==
[~2017-11-23] VITALS: Ht 162.6 cm; Wt 89.0 kg
[2017-11-23] MEDS ORDERED: SODIUM CHLORIDE 0.9% 1,000ML IVBOLUS ONE (13:30)
[2017-11-23 14:02] LABS: HCT (SEDRATE) 33.5 % (34.6-47.8)
[2017-11-23 14:08] LABS: BASOPHILS # (AUTO) 0.04 x10^3/uL (0-0.1); BASOPHILS % (AUTO) 0 % (0-1); EOSINOPHILS # (AUTO) 0.12 x10^3/uL (0-0.4); EOSINOPHILS % (AUTO) 2 % (1-7); LYMPHOCYTES # (AUTO) 1.86 x10^3/uL (1-3.4); LYMPHOCYTES % (AUTO) 23 % (22-44); MD NO; MEAN CORPUSCULAR HEMOGLOBIN 28.9 pg (27.0-34.8); MEAN CORPUSCULAR HGB CONC 33.4 g/dL (32.4-35.8); MEAN CORPUSCULAR VOLUME 86.4 fL (80-100); MONOCYTES # (AUTO) 0.63 x10^3/uL (0.2-0.8); MONOCYTES % (AUTO) 8 % (2-9); NEUTROPHILS # (AUTO) 5.35 x10^3/uL (1.8-6.8); NEUTROPHILS % (AUTO) 67 % (42-75); PLATELET COUNT 318 x10^3/uL (130-400); RED BLOOD COUNT 3.86 x10^6/uL (3.82-5.3); RED CELL DISTRIBUTION WIDTH 15.3 % (9.6-15.2)
[2017-11-23 14:11] LABS: ALBUMIN 2.6 g/dL (3.4-5.0); ANION GAP 5 mmol/L (5-15); CHLORIDE 112 mmol/L (98-107); CREATININE 0.54 mg/dL (0.55-1.02)
[2017-11-23] MEDS ORDERED: PHARMACOKINETIC CONSULTATION MC ONE (16:00)
[2017-11-23] MEDS ORDERED: VANCOMYCIN PER PHARMACY MC PRN (16:00)
[2017-11-23] MEDS ORDERED: VANCOMYCIN 1,600 MG in SODIUM CHLORIDE 0.9% 250 ML IV ONE (16:30)
[2017-11-23] MEDS ORDERED: ONDANSETRON 2MG/ML, 2ML IVPush PRN (17:00)
[2017-11-23] MEDS ORDERED: ONDANSETRON ODT 4 MG PO PRN (17:00)
[2017-11-23] MEDS ORDERED: POTASSIUM CHLORIDE 20 MEQ TAB.ER.PRT PO ONE ×2 (17:00→20:00)
[2017-11-23] MEDS ORDERED: LABETALOL 5MG/ML, 20ML IVPush PRN (17:00)
[2017-11-23 17:36] LABS: FREE T4 (FREE THYROXINE) 0.87 ng/dL (0.76-1.46)
[2017-11-23 19:58] VITALS: BP 141/83
[2017-11-23] MEDS: ENOXAPARIN 40 MG/0.4 ML SQ SCH (22:06)
[2017-11-23] MEDS: SODIUM CHLORIDE 0.9% 1,000 ML IV SCH (22:26)
[2017-11-23 22:45] LABS: CULTURE INDICATED? YES; MICROSCOPIC INDICATED
[2017-11-24 03:00] VITALS: BP 152/88
[2017-11-24 05:56] LABS: BASOPHILS # (AUTO) 0.02 x10^3/uL (0-0.1); BASOPHILS % (AUTO) 0 % (0-1); EOSINOPHILS # (AUTO) 0.15 x10^3/uL (0-0.4); EOSINOPHILS % (AUTO) 2 % (1-7); LYMPHOCYTES # (AUTO) 1.81 x10^3/uL (1-3.4); LYMPHOCYTES % (AUTO) 23 % (22-44); MD NO; MEAN CORPUSCULAR HEMOGLOBIN 28.7 pg (27.0-34.8); MEAN CORPUSCULAR HGB CONC 33.1 g/dL (32.4-35.8); MEAN CORPUSCULAR VOLUME 86.9 fL (80-100); MEAN PLATELET VOLUME 8.2 fL (7.4-10.4); MONOCYTES # (AUTO) 0.55 x10^3/uL (0.2-0.8); MONOCYTES % (AUTO) 7 % (2-9); NEUTROPHILS # (AUTO) 5.38 x10^3/uL (1.8-6.8); NEUTROPHILS % (AUTO) 68 % (42-75); PLATELET COUNT 291 x10^3/uL (130-400)
[2017-11-24 06:08] LABS: CHLORIDE 111 mmol/L (98-107)
[2017-11-24 06:29] LABS: ALANINE AMINOTRANSFERASE 14 U/L (12-78); ALBUMIN 2.3 g/dL (3.4-5.0); ALKALINE PHOSPHATASE 76 U/L (45-117); ANION GAP 8 mmol/L (5-15); BILIRUBIN,TOTAL 0.4 mg/dL (0.2-1.0); CALCIUM 7.8 mg/dL (8.5-10.1); CREATININE 0.46 mg/dL (0.55-1.02); TOTAL PROTEIN 6.3 g/dL (6.4-8.2)
[2017-11-24] MEDS ORDERED: VANCOMYCIN PER PHARMACY MC PRN (07:30)
[2017-11-24] MEDS ORDERED: PHARMACOKINETIC MONITORING MC PRN (07:30)
[2017-11-24] MEDS: AMPICILLIN/SULBACTAM 3 GM in SODIUM CHLORIDE 0.9% 100 ML IV SCH ×3 (07:50→23:41)
[2017-11-24] MEDS: SODIUM CHLORIDE 0.9% 1,000 ML IV SCH ×2 (07:50→21:00)
[2017-11-24 08:56] VITALS: BP 146/77
[2017-11-24] MEDS: VANCOMYCIN 1,600 MG in SODIUM CHLORIDE 0.9% 250 ML IV SCH ×2 (09:51→20:34)
[2017-11-24 13:18] VITALS: BP 125/85
[2017-11-24 19:45] VITALS: BP 145/93
[2017-11-24] MEDS: ENOXAPARIN 40 MG/0.4 ML SQ SCH (20:34)
[2017-11-25 02:53] VITALS: BP 156/93
[2017-11-25] MEDS: AMPICILLIN/SULBACTAM 3 GM in SODIUM CHLORIDE 0.9% 100 ML IV SCH ×4 (05:20→23:03)
[2017-11-25] MEDS: SODIUM CHLORIDE 0.9% 1,000 ML IV SCH ×2 (05:21→17:15)
[2017-11-25] MEDS: VANCOMYCIN 1,600 MG in SODIUM CHLORIDE 0.9% 250 ML IV SCH ×2 (07:28→19:32)
[2017-11-25 07:51] VITALS: BP 142/89
[2017-11-25] MEDS ORDERED: NICOTINE 14MG/24 HR PATCH.TD24 ONE (10:49)
[2017-11-25] MEDS: NICOTINE 14MG/24 HR PATCH.TD24 TD SCH (10:54)
[2017-11-25 15:12] VITALS: BP 155/81
[2017-11-25 20:39] VITALS: BP 158/83
[2017-11-25] MEDS: ENOXAPARIN 40 MG/0.4 ML SQ SCH (21:03)
[2017-11-26 03:54] VITALS: BP 139/84
[2017-11-26] MEDS: SODIUM CHLORIDE 0.9% 1,000 ML IV SCH ×2 (03:59→23:10)
[2017-11-26] MEDS: AMPICILLIN/SULBACTAM 3 GM in SODIUM CHLORIDE 0.9% 100 ML IV SCH ×4 (04:58→23:10)
[2017-11-26 07:00] VITALS: BP 140/80
[2017-11-26] MEDS: VANCOMYCIN 1,600 MG in SODIUM CHLORIDE 0.9% 250 ML IV SCH ×2 (08:15→20:24)
[2017-11-26] MEDS: NICOTINE 14MG/24 HR PATCH.TD24 TD SCH (10:56)
[2017-11-26 15:00] VITALS: BP 152/72
[2017-11-26 20:00] VITALS: BP 151/90
[2017-11-26] MEDS: ENOXAPARIN 40 MG/0.4 ML SQ SCH (20:23)
[2017-11-27 02:00] VITALS: BP 146/93
[2017-11-27] MEDS: AMPICILLIN/SULBACTAM 3 GM in SODIUM CHLORIDE 0.9% 100 ML IV SCH (05:09)
[2017-11-27 07:52] VITALS: BP 146/84
[2017-11-27] MEDS: VANCOMYCIN 1,600 MG in SODIUM CHLORIDE 0.9% 250 ML IV SCH (08:07)
[2017-11-27] MEDS: CEFAZOLIN PMX 2GM/50ML 50 ML IVPB SCH ×2 (09:52→17:39)
[2017-11-27] MEDS: SODIUM CHLORIDE 0.9% 1,000 ML IV SCH ×2 (11:18→21:26)
[2017-11-27] MEDS: NICOTINE 14MG/24 HR PATCH.TD24 TD SCH (11:24)
[2017-11-27] MEDS ORDERED: CEPH-368 PO (11:53)
[2017-11-27 14:02] VITALS: BP 168/91
[2017-11-27 20:05] VITALS: BP 145/85
[2017-11-27] MEDS: ENOXAPARIN 40 MG/0.4 ML SQ SCH (21:26)
[2017-11-28 00:57] VITALS: BP 149/89
[2017-11-28] MEDS: CEFAZOLIN PMX 2GM/50ML 50 ML IVPB SCH ×3 (01:32→17:42)
[2017-11-28] MEDS: SODIUM CHLORIDE 0.9% 1,000 ML IV SCH (05:31)
[2017-11-28 05:43] LABS: CREATININE 0.58 mg/dL (0.55-1.02)
[2017-11-28 06:45] VITALS: BP 145/82
[2017-11-28 12:35] VITALS: BP 136/86
[2017-11-28] MEDS: NICOTINE 14MG/24 HR PATCH.TD24 TD SCH (12:42)
[2017-11-28 18:31] VITALS: BP 144/87
[2017-11-28] MEDS: ENOXAPARIN 40 MG/0.4 ML SQ SCH (21:17)
[2017-11-29 01:05] VITALS: BP 125/74
[2017-11-29] MEDS: CEFAZOLIN PMX 2GM/50ML 50 ML IVPB SCH ×3 (01:52→18:15)
[2017-11-29 07:19] VITALS: BP 165/96
[2017-11-29] MEDS: NICOTINE 14MG/24 HR PATCH.TD24 TD SCH (10:49)
[2017-11-29 12:57] VITALS: BP 143/83
[2017-11-29 19:43] VITALS: BP 113/59
[2017-11-29] MEDS: ENOXAPARIN 40 MG/0.4 ML SQ SCH (22:27)
[2017-11-30] MEDS: CEFAZOLIN PMX 2GM/50ML 50 ML IVPB SCH ×3 (01:17→17:03)
[2017-11-30 01:54] VITALS: BP 123/78
[2017-11-30 05:10] LABS: BASOPHILS # (AUTO) 0.04 x10^3/uL (0-0.1); BASOPHILS % (AUTO) 1 % (0-1); EOSINOPHILS # (AUTO) 0.24 x10^3/uL (0-0.4); EOSINOPHILS % (AUTO) 3 % (1-7); LYMPHOCYTES # (AUTO) 3.22 x10^3/uL (1-3.4); LYMPHOCYTES % (AUTO) 33 % (22-44); MD NO; MEAN CORPUSCULAR HEMOGLOBIN 28.7 pg (27.0-34.8); MEAN CORPUSCULAR HGB CONC 32.9 g/dL (32.4-35.8); MEAN CORPUSCULAR VOLUME 87.4 fL (80-100); MEAN PLATELET VOLUME 8.2 fL (7.4-10.4); MONOCYTES # (AUTO) 0.88 x10^3/uL (0.2-0.8); MONOCYTES % (AUTO) 9 % (2-9); NEUTROPHILS # (AUTO) 5.36 x10^3/uL (1.8-6.8); NEUTROPHILS % (AUTO) 55 % (42-75); PLATELET COUNT 329 x10^3/uL (130-400); RED BLOOD COUNT 3.97 x10^6/uL (3.82-5.3); RED CELL DISTRIBUTION WIDTH 15.3 % (9.6-15.2)
[2017-11-30 05:20] LABS: CHLORIDE 106 mmol/L (98-107)
[2017-11-30 05:25] LABS: ALBUMIN 2.8 g/dL (3.4-5.0); ANION GAP 7 mmol/L (5-15); CALCIUM 8.3 mg/dL (8.5-10.1); CREATININE 0.59 mg/dL (0.55-1.02)
[2017-11-30 06:54] VITALS: BP 133/87
[2017-11-30] MEDS: NICOTINE 14MG/24 HR PATCH.TD24 TD SCH (11:00)
[2017-11-30 12:41] VITALS: BP 130/81
[2017-11-30 18:55] VITALS: BP 137/91
[2017-11-30] MEDS: ENOXAPARIN 40 MG/0.4 ML SQ SCH (20:17)
[2017-12-01 00:57] VITALS: BP 137/84
[2017-12-01] MEDS: CEFAZOLIN PMX 2GM/50ML 50 ML IVPB SCH ×2 (01:53→10:15)
[2017-12-01 07:14] VITALS: BP 130/86
[2017-12-01] MEDS: NICOTINE 14MG/24 HR PATCH.TD24 TD SCH (11:10)
[2017-12-01] MEDS ORDERED: CEPH-368 PO (13:26)
== END 2017-12-01 14:21 | disposition home or self-care (01) | DRG 602 ==
LOC: ED 16:16 → EDIP 16:17 → ED 16:48 → 4WST 18:24 → 3NE 11-30 12:00
PROVIDERS: ADMIT Internal Medicine; ATTEND Internal Medicine
DX: L03.115 Cellulitis of right lower limb (principal); E43 Unspecified severe protein-calorie malnutrition; N39.0 Urinary tract infection, site not specified; D64.9 Anemia, unspecified; Z68.33 Body mass index [BMI] 33.0-33.9, adult; Z88.2 Allergy status to sulfonamides; Z88.8 Allergy status to other drugs, medicaments and biological substances; F31.9 Bipolar disorder, unspecified; I45.81 Long QT syndrome; Z59.0 Homelessness; Z86.14 Personal history of Methicillin resistant Staphylococcus aureus infection; Z91.19 Patient's noncompliance with other medical treatment and regimen; G60.0 Hereditary motor and sensory neuropathy
CPT/HCPCS: 36415; 71045; 80048; 80053; 80202; 81001; 82040; 82565; 83605; 83735; 84100; 84145; 84439; 84443; 85025; 85651; 87040; 87070; 87077; 87086; 87147; 87186; 87205; 93005; 93306; 99285; J0295; J0690; J1650; J3370; J7030; J7050

== ENCOUNTER 2017-12-09 02:36 | Inpatient (IN) | payer MEDICAID ==
[~2017-12-09] VITALS: Ht 162.6 cm; Wt 97.1 kg
[~2017-12-09 02:36] MED LIST changes: +CEPH-368 PO
[2017-12-09] MEDS ORDERED: NALOXONE 0.4 MG/ML, 1ML ONE ×2 (02:50→02:54)
[2017-12-09] MEDS ORDERED: NALOXONE 1 MG/ML, 2ML IVPush ONE (03:00)
[2017-12-09 03:07] LABS: BASOPHILS # (AUTO) 0.04 x10^3/uL (0-0.1); BASOPHILS % (AUTO) 0 % (0-1); EOSINOPHILS # (AUTO) 0.06 x10^3/uL (0-0.4); EOSINOPHILS % (AUTO) 1 % (1-7); LYMPHOCYTES # (AUTO) 2.11 x10^3/uL (1-3.4); LYMPHOCYTES % (AUTO) 16 % (22-44); MD NO; MEAN CORPUSCULAR HEMOGLOBIN 29.5 pg (27.0-34.8); MEAN CORPUSCULAR HGB CONC 33.8 g/dL (32.4-35.8); MEAN CORPUSCULAR VOLUME 87.5 fL (80-100); MEAN PLATELET VOLUME 7.7 fL (7.4-10.4); MONOCYTES # (AUTO) 1.03 x10^3/uL (0.2-0.8); MONOCYTES % (AUTO) 8 % (2-9); NEUTROPHILS # (AUTO) 9.63 x10^3/uL (1.8-6.8); NEUTROPHILS % (AUTO) 75 % (42-75); PLATELET COUNT 312 x10^3/uL (130-400); RED CELL DISTRIBUTION WIDTH 15.4 % (9.6-15.2)
[2017-12-09 03:19] LABS: ALANINE AMINOTRANSFERASE 17 U/L (12-78); ALBUMIN 2.7 g/dL (3.4-5.0); ANION GAP 8 mmol/L (5-15); CALCIUM 7.9 mg/dL (8.5-10.1); CHLORIDE 107 mmol/L (98-107)
[2017-12-09 03:20] LABS: SALICYLATE LEVEL < 1.7 mg/dL (2.8-20.0)
[2017-12-09 03:24] LABS: ALKALINE PHOSPHATASE 69 U/L (45-117); TOTAL PROTEIN 6.8 g/dL (6.4-8.2)
[2017-12-09 03:25] LABS: ACETAMINOPHEN < 2 mcg/mL (10-30)
[2017-12-09] MEDS ORDERED: SODIUM CHLORIDE FLUSH 10ML SYR IVF ONE (03:30)
[2017-12-09] MEDS ORDERED: SODIUM CHLORIDE 0.9% 1,000ML IVBOLUS ONE (03:30)
[2017-12-09 03:38] LABS: BILIRUBIN,TOTAL 0.2 mg/dL (0.2-1.0)
[2017-12-09 04:06] VITALS: BP 124/74
[2017-12-09] MEDS ORDERED: SODIUM CHLORIDE 0.9% 1,000 ML IV SCH (04:14)
[2017-12-09] MEDS ORDERED: BISACODYL 10 MG SUPP PR PRN (04:30)
[2017-12-09] MEDS ORDERED: ONDANSETRON ODT 4 MG PO PRN (04:30)
[2017-12-09] MEDS ORDERED: LABETALOL 5MG/ML, 20ML IVPush PRN (04:30)
[2017-12-09] MEDS ORDERED: POLYETHYLENE GLYCOL 17 GM PACKET PO PRN (04:30)
[2017-12-09] MEDS ORDERED: HEPARIN 5,000 UNITS/ML, 1ML SQ SCH (04:30)
[2017-12-09] MEDS ORDERED: ONDANSETRON 2MG/ML, 2ML IVPush PRN (04:30)
[2017-12-09] MEDS ORDERED: ENALAPRILAT 1.25 MG/ML, 2ML IVPush PRN (04:30)
[2017-12-09] MEDS ORDERED: PROMETHAZINE 25 MG/ML, 1ML IM PRN (04:30)
[2017-12-09] MEDS ORDERED: ACETAMINOPHEN 325 MG TABLET PO PRN (04:30)
[2017-12-09] MEDS ORDERED: DOCUSATE 100 MG CAPSULE PO PRN (04:30)
[2017-12-09 05:37] LABS: FREE T4 (FREE THYROXINE) 0.79 ng/dL (0.76-1.46); THYROID STIMULATING HORMONE 2.41 mIU/L (0.358-3.740)
[2017-12-09 06:01] LABS: HEMOGLOBIN A1C 5.6 % (4.2-6.3)
== END 2017-12-09 11:09 | disposition left against medical advice (07) | DRG 80 ==
LOC: ED 03:15 → EDIP 03:36 → 3NE 05:22
PROVIDERS: ADMIT Internal Medicine; ATTEND Internal Medicine
DX: R40.1 Stupor (principal); E43 Unspecified severe protein-calorie malnutrition; G93.40 Encephalopathy, unspecified; F17.200 Nicotine dependence, unspecified, uncomplicated; E86.0 Dehydration; Z53.21 Procedure and treatment not carried out due to patient leaving prior to being seen by health care provider; D72.829 Elevated white blood cell count, unspecified; F12.90 Cannabis use, unspecified, uncomplicated; Z91.19 Patient's noncompliance with other medical treatment and regimen; Z59.0 Homelessness; Z88.2 Allergy status to sulfonamides; Z88.1 Allergy status to other antibiotic agents; Z68.36 Body mass index [BMI] 36.0-36.9, adult
CPT/HCPCS: 36415; 70450; 80053; 80307; 80329; 82140; 83036; 83735; 84439; 84443; 84703; 85025; 87040; 99285; G0480; J7030

== ENCOUNTER 2017-12-11 15:37 | Emergency (ER) | payer MEDICAID ==
[2017-12-11 15:41] VITALS: BP 136/74
== END 2017-12-11 19:09 | disposition home or self-care (01) ==
LOC: ED 19:00
DX: R53.83 Other fatigue (principal); R41.82 Altered mental status, unspecified; M19.91 Primary osteoarthritis, unspecified site
CPT/HCPCS: 99283

== ENCOUNTER 2018-01-03 11:36 | Emergency (ER) | payer MEDICAID ==
[2018-01-03 12:34] LABS: BASOPHILS # (AUTO) 0.03 x10^3/uL (0-0.1); BASOPHILS % (AUTO) 1 % (0-1); EOSINOPHILS # (AUTO) 0.24 x10^3/uL (0-0.4); EOSINOPHILS % (AUTO) 4 % (1-7); LYMPHOCYTES # (AUTO) 1.75 x10^3/uL (1-3.4); LYMPHOCYTES % (AUTO) 29 % (22-44); MD NO; MEAN CORPUSCULAR HEMOGLOBIN 28.5 pg (27.0-34.8); MEAN CORPUSCULAR HGB CONC 32.9 g/dL (32.4-35.8); MEAN CORPUSCULAR VOLUME 86.6 fL (80-100); MONOCYTES # (AUTO) 0.57 x10^3/uL (0.2-0.8); MONOCYTES % (AUTO) 9 % (2-9); NEUTROPHILS # (AUTO) 3.47 x10^3/uL (1.8-6.8); NEUTROPHILS % (AUTO) 57 % (42-75); PLATELET COUNT 283 x10^3/uL (130-400); RED BLOOD COUNT 3.92 x10^6/uL (3.82-5.3); RED CELL DISTRIBUTION WIDTH 15.2 % (9.6-15.2)
[2018-01-03] MEDS ORDERED: LORazepam 1MG TABLET PO ONE (13:30)
[2018-01-03] MEDS ORDERED: NALOXONE 1 MG/ML, 2ML ONE ×2 (13:50→15:04)
[2018-01-03] MEDS ORDERED: NALOXONE 1 MG/ML, 2ML IVPush ONE ×2 (14:00→15:30)
[2018-01-03] MEDS ORDERED: PLEASE ENTER HEIGHT AND WEIGHT MC SCH (14:00)
[2018-01-03] MEDS ORDERED: NALOXONE 1 MG/ML, 2ML SQ ONE (14:00)
[2018-01-03] MEDS ORDERED: NALOXONE 0.4 MG/ML, 1ML IVPush ONE (14:30)
[2018-01-03] MEDS ORDERED: NALOXONE 0.4 MG/ML, 1ML ONE (14:33)
[2018-01-03 16:19] VITALS: BP 130/70
== END 2018-01-03 17:13 | disposition home or self-care (01) ==
LOC: ED 17:07
DX: G89.29 Other chronic pain (principal); L03.116 Cellulitis of left lower limb; F11.129 Opioid abuse with intoxication, unspecified; F17.210 Nicotine dependence, cigarettes, uncomplicated; Z59.0 Homelessness; Z99.3 Dependence on wheelchair; Z60.2 Problems related to living alone; Z72.89 Other problems related to lifestyle; Z60.9 Problem related to social environment, unspecified
CPT/HCPCS: 36415; 73610; 73630; 85025; 96374; 96376; 99285; J2310

== ENCOUNTER 2018-01-09 11:16 | Emergency (ER) | payer MEDICAID ==
[~2018-01-09] VITALS: Ht 162.6 cm; Wt 76.0 kg
[2018-01-09 12:12] VITALS: BP 128/82
== END 2018-01-09 12:14 | disposition home or self-care (01) ==
LOC: ED 11:37
DX: G89.29 Other chronic pain (principal); M25.572 Pain in left ankle and joints of left foot; F31.9 Bipolar disorder, unspecified; Z88.2 Allergy status to sulfonamides; Z88.1 Allergy status to other antibiotic agents
CPT/HCPCS: 99283

== ENCOUNTER 2018-01-10 19:39 | Emergency (ER) | payer MEDICAID ==
[~2018-01-10] VITALS: Ht 162.6 cm; Wt 75.0 kg
[2018-01-10 21:40] VITALS: BP 142/94
== END 2018-01-10 22:38 | disposition home or self-care (01) ==
LOC: ED 22:10
DX: G89.29 Other chronic pain (principal); M25.572 Pain in left ankle and joints of left foot; M79.672 Pain in left foot; F31.9 Bipolar disorder, unspecified
CPT/HCPCS: 99284

== ENCOUNTER 2018-01-14 22:39 | Emergency (ER) | payer MEDICAID ==
[~2018-01-14] VITALS: Ht 162.6 cm; Wt 75.0 kg
[2018-01-14 22:43] VITALS: BP 119/79
== END 2018-01-14 23:51 | disposition home or self-care (01) ==
LOC: ED 22:44
DX: M79.672 Pain in left foot (principal); Z98.51 Tubal ligation status
CPT/HCPCS: 99283

== ENCOUNTER 2018-02-12 02:34 | Emergency (ER) | payer MEDICAID ==
[~2018-02-12] VITALS: Ht 162.6 cm; Wt 90.0 kg
[2018-02-12 02:53] VITALS: BP 145/82
== END 2018-02-12 04:44 | disposition home or self-care (01) ==
LOC: ED 03:42
DX: G89.29 Other chronic pain (principal); M79.671 Pain in right foot; M79.672 Pain in left foot; Z72.9 Problem related to lifestyle, unspecified; F31.9 Bipolar disorder, unspecified; F17.200 Nicotine dependence, unspecified, uncomplicated; Z88.2 Allergy status to sulfonamides; Z88.0 Allergy status to penicillin
CPT/HCPCS: 99283

== ENCOUNTER 2018-05-22 17:44 | Emergency (ER) | payer MEDICAID ==
[~2018-05-22] VITALS: Ht 170.2 cm; Wt 95.0 kg
[2018-05-22 22:36] VITALS: BP 132/82
== END 2018-05-22 22:38 | disposition home or self-care (01) ==
LOC: ED 19:18
DX: Z00.00 Encounter for general adult medical examination without abnormal findings (principal); Z72.9 Problem related to lifestyle, unspecified; Z59.0 Homelessness
CPT/HCPCS: 99283

== ENCOUNTER 2018-05-23 16:54 | Inpatient (IN) | payer MEDICAID ==
[~2018-05-23] VITALS: Ht 165.1 cm; Wt 117.1 kg
--- NOTE | 2018-05-23 16:58 | NUR ---
GOWN GIVEN TO PT. SAFETY MEASURES APPLIED FOR "SI" PT.
--- NOTE | 2018-05-23 17:06 | NUR ---
received report from Yong. pt changed into gown, pt very sleepy, requires frequent redirection to obtain verbal responses/follow commands, NAD, comfort measures provided, pt in safe environment, personal belongings in bag x4 (walking boot in bag) placed in locker & personal WC (lebled) in ante room, awaiting sitter, will continue to monitor frequantly.
--- NOTE | 2018-05-23 17:42 | NUR ---
pt unable to perform breathylizer despite multiple attempts- ERP aware
--- NOTE | 2018-05-23 18:05 | NUR ---
pt very sleepy but restless c/o needing to void, pt unable to stay awake long enough to assess gait requiring frequent redirection, bedpan placed multiple times but pt keeps removing it & falling back to sleep, NAD, comfort measures provided, pt in safe environment, sitter in full view.
[2018-05-23 18:16] LABS: BASOPHILS # (AUTO) 0.03 x10^3/uL (0-0.1); BASOPHILS % (AUTO) 0 % (0-1); EOSINOPHILS # (AUTO) 0.08 x10^3/uL (0-0.4); EOSINOPHILS % (AUTO) 1 % (1-7); LYMPHOCYTES # (AUTO) 2.07 x10^3/uL (1-3.4); LYMPHOCYTES % (AUTO) 21 % (22-44); MD NO; MEAN CORPUSCULAR HEMOGLOBIN 28.4 pg (27.0-34.8); MEAN CORPUSCULAR HGB CONC 33.1 g/dL (32.4-35.8); MEAN CORPUSCULAR VOLUME 85.6 fL (80-100); MEAN PLATELET VOLUME 8.3 fL (7.4-10.4); MONOCYTES # (AUTO) 0.77 x10^3/uL (0.2-0.8); MONOCYTES % (AUTO) 8 % (2-9); NEUTROPHILS # (AUTO) 7.13 x10^3/uL (1.8-6.8); NEUTROPHILS % (AUTO) 71 % (42-75); PLATELET COUNT 332 x10^3/uL (130-400); RED BLOOD COUNT 4.38 x10^6/uL (3.82-5.3); RED CELL DISTRIBUTION WIDTH 18.3 % (9.6-15.2)
[2018-05-23 18:27] LABS: ALBUMIN 3.9 g/dL (3.4-5.0); ANION GAP 6 mmol/L (5-15); CALCIUM 8.7 mg/dL (8.5-10.1); CHLORIDE 110 mmol/L (98-107); CREATININE 0.63 mg/dL (0.55-1.02)
[2018-05-23 18:46] LABS: ACETAMINOPHEN < 2 mcg/mL (10-30)
--- NOTE | 2018-05-23 18:50 | NUR ---
report given to Angy
--- NOTE | 2018-05-23 18:58 | NUR ---
RECEIVED REPORT FROM FRANCISCO PACHECO TO ASSUME PT. CARE. PT. IS IN SECURED ROOM WITH SITTER IN ORTIZ. PT. RESTING ON GURNEY WITH EYES CLOSED. EVEN, NON-LABORED RESPIRATIONS NOTED. ALL SAFETY MEASURES OBSERVED.
--- NOTE | 2018-05-23 19:29 | NUR ---
PT. SAT UP ON GURTUJUNGA. PT. NOT RE-DIRECTABLE. CAN NOT UNDERSTAND WHAT PT. IS SAYING. PT. FLAILING AROUND WITH INCOMPREHENSIBLE SPEECH. PT. STARED TO URINATE ALL OVER THE GURNEY AND FLOOR. UNABLE TO REDIRECT PT. TO LYE DOWN ON GURTUJUNGA. GOWN CHANGED. LINEN ON GURTUJUNGA CHANGED. LAB WAS ABLE TO DRAW BLOOD. PT. NOW BACK IN SUPINE POSITION WITH EYES CLOSED. SITTER REMAINS IN DOORWAY. WILL CONTINUE TO MONITOR.
--- NOTE | 2018-05-23 19:48 | NUR ---
PT. RESTING ON GURNEY WITH EYES CLOSED IN SUPINE POSITION. EVEN, NON-LABORED RESPIRATIONS NOTED. SITTER IN ORTIZ IN DIRECT VIEW. ROOM SECURED.
[2018-05-23] MEDS ORDERED: AMPICILLIN/SULBACTAM 3 GM in SODIUM CHLORIDE 0.9% 100 ML IV ONE (20:30)
[2018-05-23] MEDS ORDERED: VANCOMYCIN PER PHARMACY MC ONE (20:30)
--- NOTE | 2018-05-23 20:36 | NUR ---
CAST TO LEFT LEG REMOVED BY EDTA PER ORDER. ALICIA BRICE AND DR. GONCALVES BOTH IN TO ASSESS. INTERNAL FIXATOR PIN HEADS NOTED IN EACH TOE(EXCEPT PINKY TOE). REDNESS/SWELLING NOTED TO FOOT/ANKLE AREA. PT. SLEEPING DURING ENTIRE PROCEDURE; EVEN NON-LABORED RESPIRATIONS THROUGHOUT.
[2018-05-23] MEDS ORDERED: VANCOMYCIN 1,300 MG in SODIUM CHLORIDE 0.9% 250 ML IV ONE (21:00)
--- NOTE | 2018-05-23 21:54 | NUR ---
[facility] IN TO EVAL PT. FOR ADMISSION.
--- NOTE | 2018-05-23 21:59 | NUR ---
US TO BLE COMPLETED. [facility] IN TO VICKI PT.
[2018-05-23] MEDS: AMPICILLIN/SULBACTAM 3 GM in SODIUM CHLORIDE 0.9% 100 ML IV SCH (22:14)
[2018-05-23] MEDS: SODIUM CHLORIDE 0.9% 1,000 ML IV SCH (22:16)
[2018-05-23] MEDS ORDERED: BISACODYL 10 MG SUPP PR PRN (22:30)
[2018-05-23] MEDS ORDERED: VANCOMYCIN PER PHARMACY MC PRN (22:30)
[2018-05-23] MEDS ORDERED: ONDANSETRON ODT 4 MG PO PRN (22:30)
--- NOTE | 2018-05-23 22:45 | NUR ---
PT. RESTING ON GURNEY IN RIGHT SIDE LYING POSITION. RESP EVEN, NON-LABORED. CONTINUOUS PULSE OX IN PLACE. HR 112, RESP 20, O2 SAT 96% ON RA. SITTER IN DIRECT VIEW. ALL SAFETY MEASURES OBSERVED. IVF AND IV ABX INFUSING PER ORDER.
[2018-05-23] MEDS ORDERED: HEPARIN 5,000 UNITS/ML, 1ML ONE (23:23)
[2018-05-23] MEDS: HEPARIN 5,000 UNITS/ML, 1ML SQ SCH (23:27)
--- NOTE | 2018-05-23 23:28 | NUR ---
REPORT TO FRANCISCO ORTEGA. FLOOR READY FOR PT. TRANSPORT.
[2018-05-23] MEDS ORDERED: PHARMACOKINETIC MONITORING MC PRN (23:45)
[2018-05-24 02:12] VITALS: BP 103/50
[2018-05-24] MEDS: AMPICILLIN/SULBACTAM 3 GM in SODIUM CHLORIDE 0.9% 100 ML IV SCH ×3 (04:40→17:15)
[2018-05-24 05:54] LABS: BASOPHILS # (AUTO) 0.03 x10^3/uL (0-0.1); BASOPHILS % (AUTO) 0 % (0-1); EOSINOPHILS # (AUTO) 0.12 x10^3/uL (0-0.4); EOSINOPHILS % (AUTO) 2 % (1-7); LYMPHOCYTES # (AUTO) 1.67 x10^3/uL (1-3.4); LYMPHOCYTES % (AUTO) 22 % (22-44); MD NO; MEAN CORPUSCULAR HEMOGLOBIN 28.5 pg (27.0-34.8); MEAN CORPUSCULAR HGB CONC 33.4 g/dL (32.4-35.8); MEAN CORPUSCULAR VOLUME 85.4 fL (80-100); MEAN PLATELET VOLUME 8.2 fL (7.4-10.4); MONOCYTES # (AUTO) 0.71 x10^3/uL (0.2-0.8); MONOCYTES % (AUTO) 10 % (2-9); NEUTROPHILS # (AUTO) 4.98 x10^3/uL (1.8-6.8); NEUTROPHILS % (AUTO) 66 % (42-75); PLATELET COUNT 295 x10^3/uL (130-400); RED BLOOD COUNT 4.19 x10^6/uL (3.82-5.3); RED CELL DISTRIBUTION WIDTH 18.5 % (9.6-15.2)
[2018-05-24 05:59] LABS: ALBUMIN 3.2 g/dL (3.4-5.0); ANION GAP 5 mmol/L (5-15); CALCIUM 8.1 mg/dL (8.5-10.1); CHLORIDE 114 mmol/L (98-107)
[2018-05-24 06:03] LABS: ALANINE AMINOTRANSFERASE 21 U/L (12-78); ALKALINE PHOSPHATASE 134 U/L (45-117); BILIRUBIN,TOTAL 0.4 mg/dL (0.2-1.0); CREATININE 0.59 mg/dL (0.55-1.02); TOTAL PROTEIN 6.6 g/dL (6.4-8.2)
[2018-05-24] MEDS ORDERED: GABAPENTIN 300 MG CAPSULE PO SCH (09:00)
[2018-05-24] MEDS: OXCARBAZEPINE 150 MG TABLET PO SCH ×2 (09:00→21:45)
[2018-05-24] MEDS ORDERED: IBUP-1223 PO (09:33)
[2018-05-24] MEDS ORDERED: METO50TA6 PO (09:33)
[2018-05-24] MEDS ORDERED: FERR324T8 PO (09:33)
[2018-05-24] MEDS ORDERED: OXCA150T3 PO (09:33)
[2018-05-24] MEDS ORDERED: GABA300C10 PO (09:33)
[2018-05-24 09:44] VITALS: BP 100/42
[2018-05-24] MEDS: METOPROLOL TARTRATE 50 MG TABLET PO SCH ×2 (10:00→21:45)
[2018-05-24] MEDS: IBUPROFEN 800 MG TABLET PO PRN ×2 (10:04→21:46)
[2018-05-24] MEDS: HEPARIN 5,000 UNITS/ML, 1ML SQ SCH ×2 (10:04→17:14)
[2018-05-24] MEDS: SENNA/DOCUSATE TABLET PO SCH (10:05)
[2018-05-24] MEDS: VANCOMYCIN 2,000 MG in SODIUM CHLORIDE 0.9% 500 ML IV SCH ×2 (10:06→21:33)
[2018-05-24] MEDS: FERROUS GLUCONATE 324 MG TABLET PO SCH ×2 (12:00→17:00)
[2018-05-24 14:55] LABS: AMPHETAMINE SCREEN, URINE Positive (Negative); BARBITURATE SCREEN, URINE Negative (Negative); BENZODIAZEPINE SCREEN, URINE Negative (Negative); CANNABINOID SCREEN, URINE Negative (Negative); COCAINE SCREEN, URINE Negative (Negative); METHADONE SCREEN, URINE Negative (Negative); OPIATE SCREEN, URINE Negative (Negative)
[2018-05-24 15:11] VITALS: BP 126/86
[2018-05-24] MEDS: SODIUM CHLORIDE 0.9% 1,000 ML IV SCH (16:00)
[2018-05-24 20:15] VITALS: BP 127/76
[2018-05-24] MEDS: GABAPENTIN 300 MG CAPSULE PO SCH (21:45)
[2018-05-25] MEDS: AMPICILLIN/SULBACTAM 3 GM in SODIUM CHLORIDE 0.9% 100 ML IV SCH ×4 (00:52→20:49)
[2018-05-25] MEDS: HEPARIN 5,000 UNITS/ML, 1ML SQ SCH ×3 (00:52→17:19)
[2018-05-25] MEDS: SODIUM CHLORIDE 0.9% 1,000 ML IV SCH ×2 (01:39→13:32)
[2018-05-25 01:59] VITALS: BP 120/74
[2018-05-25 06:20] LABS: BASOPHILS # (AUTO) 0.03 x10^3/uL (0-0.1); BASOPHILS % (AUTO) 0 % (0-1); EOSINOPHILS # (AUTO) 0.25 x10^3/uL (0-0.4); EOSINOPHILS % (AUTO) 4 % (1-7); LYMPHOCYTES # (AUTO) 2.23 x10^3/uL (1-3.4); LYMPHOCYTES % (AUTO) 35 % (22-44); MD NO; MEAN CORPUSCULAR HEMOGLOBIN 28.4 pg (27.0-34.8); MEAN CORPUSCULAR HGB CONC 33.2 g/dL (32.4-35.8); MEAN CORPUSCULAR VOLUME 85.4 fL (80-100); MEAN PLATELET VOLUME 8.2 fL (7.4-10.4); MONOCYTES # (AUTO) 0.55 x10^3/uL (0.2-0.8); MONOCYTES % (AUTO) 9 % (2-9); NEUTROPHILS # (AUTO) 3.35 x10^3/uL (1.8-6.8); NEUTROPHILS % (AUTO) 52 % (42-75); PLATELET COUNT 290 x10^3/uL (130-400); RED BLOOD COUNT 4.07 x10^6/uL (3.82-5.3); RED CELL DISTRIBUTION WIDTH 18.4 % (9.6-15.2)
[2018-05-25 06:25] LABS: ANION GAP 8 mmol/L (5-15); CHLORIDE 113 mmol/L (98-107)
[2018-05-25 06:26] LABS: ALBUMIN 3.2 g/dL (3.4-5.0)
[2018-05-25 06:28] LABS: CREATININE 0.47 mg/dL (0.55-1.02)
[2018-05-25 08:16] VITALS: BP 149/76
[2018-05-25] MEDS ORDERED: GABAPENTIN 300 MG CAPSULE PO SCH ×2 (09:00)
[2018-05-25] MEDS ORDERED: OXCARBAZEPINE 150 MG TABLET PO SCH (09:00)
[2018-05-25] MEDS: OXCARBAZEPINE 150 MG TABLET PO SCH ×2 (09:06→20:51)
[2018-05-25] MEDS: GABAPENTIN 300 MG CAPSULE PO SCH ×2 (09:06→20:49)
[2018-05-25] MEDS: SENNA/DOCUSATE TABLET PO SCH (09:06)
[2018-05-25] MEDS: FERROUS GLUCONATE 324 MG TABLET PO SCH (09:06)
[2018-05-25] MEDS: METOPROLOL TARTRATE 50 MG TABLET PO SCH ×2 (09:06→20:50)
[2018-05-25] MEDS: VANCOMYCIN 2,000 MG in SODIUM CHLORIDE 0.9% 500 ML IV SCH ×2 (10:08→22:29)
[2018-05-25 13:18] VITALS: BP 118/81
[2018-05-25 19:57] VITALS: BP 108/70
[2018-05-25] MEDS: IBUPROFEN 800 MG TABLET PO PRN (22:23)
[2018-05-26] MEDS: ACETAMINOPHEN 325 MG TABLET PO PRN (01:15)
[2018-05-26] MEDS: HEPARIN 5,000 UNITS/ML, 1ML SQ SCH ×3 (01:15→16:39)
[2018-05-26] MEDS: SODIUM CHLORIDE 0.9% 1,000 ML IV SCH (01:15)
[2018-05-26 01:24] VITALS: BP 142/74
[2018-05-26] MEDS: AMPICILLIN/SULBACTAM 3 GM in SODIUM CHLORIDE 0.9% 100 ML IV SCH ×2 (03:09→07:43)
[2018-05-26 07:45] VITALS: BP 156/86
[2018-05-26] MEDS: SENNA/DOCUSATE TABLET PO SCH (09:53)
[2018-05-26] MEDS: FERROUS GLUCONATE 324 MG TABLET PO SCH (09:53)
[2018-05-26] MEDS: METOPROLOL TARTRATE 50 MG TABLET PO SCH ×2 (09:53→21:34)
[2018-05-26] MEDS: GABAPENTIN 300 MG CAPSULE PO SCH ×2 (09:53→21:33)
[2018-05-26] MEDS: OXCARBAZEPINE 150 MG TABLET PO SCH ×2 (09:53→21:35)
[2018-05-26] MEDS: VANCOMYCIN 2,000 MG in SODIUM CHLORIDE 0.9% 500 ML IV SCH (09:53)
[2018-05-26 12:20] VITALS: BP 155/79
[2018-05-26 19:16] VITALS: BP 127/44
[2018-05-26] MEDS: AMOXICILLIN/CLAV 875-125MG TABLET PO SCH (21:34)
[2018-05-27 00:54] VITALS: BP 143/65
[2018-05-27] MEDS: HEPARIN 5,000 UNITS/ML, 1ML SQ SCH ×3 (02:22→17:23)
[2018-05-27 05:47] LABS: BASOPHILS # (AUTO) 0.03 x10^3/uL (0-0.1); BASOPHILS % (AUTO) 0 % (0-1); EOSINOPHILS # (AUTO) 0.23 x10^3/uL (0-0.4); EOSINOPHILS % (AUTO) 3 % (1-7); LYMPHOCYTES # (AUTO) 1.86 x10^3/uL (1-3.4); LYMPHOCYTES % (AUTO) 22 % (22-44); MD NO; MEAN CORPUSCULAR HEMOGLOBIN 28.4 pg (27.0-34.8); MEAN CORPUSCULAR HGB CONC 33.2 g/dL (32.4-35.8); MEAN CORPUSCULAR VOLUME 85.6 fL (80-100); MONOCYTES # (AUTO) 0.74 x10^3/uL (0.2-0.8); MONOCYTES % (AUTO) 9 % (2-9); NEUTROPHILS % (AUTO) 66 % (42-75); PLATELET COUNT 302 x10^3/uL (130-400); RED BLOOD COUNT 4.33 x10^6/uL (3.82-5.3); RED CELL DISTRIBUTION WIDTH 17.6 % (9.6-15.2)
[2018-05-27 05:56] LABS: ALBUMIN 3.2 g/dL (3.4-5.0); ANION GAP 7 mmol/L (5-15); CALCIUM 8.5 mg/dL (8.5-10.1); CHLORIDE 109 mmol/L (98-107)
[2018-05-27 05:59] LABS: CREATININE 0.55 mg/dL (0.55-1.02)
[2018-05-27 08:06] VITALS: BP 135/68
[2018-05-27] MEDS: AMOXICILLIN/CLAV 875-125MG TABLET PO SCH ×2 (09:34→22:38)
[2018-05-27] MEDS: SENNA/DOCUSATE TABLET PO SCH (09:34)
[2018-05-27] MEDS: FERROUS GLUCONATE 324 MG TABLET PO SCH (09:34)
[2018-05-27] MEDS: GABAPENTIN 300 MG CAPSULE PO SCH ×2 (09:34→22:38)
[2018-05-27] MEDS: OXCARBAZEPINE 150 MG TABLET PO SCH ×2 (09:34→22:38)
[2018-05-27] MEDS: METOPROLOL TARTRATE 50 MG TABLET PO SCH ×2 (09:35→22:38)
[2018-05-27 13:36] VITALS: BP 132/75
[2018-05-27 18:42] VITALS: BP 140/75
[2018-05-28] MEDS: HEPARIN 5,000 UNITS/ML, 1ML SQ SCH ×4 (01:00→17:55)
[2018-05-28 01:29] VITALS: BP 136/75
[2018-05-28 02:07] LABS: HCG UR SG 1.011 (1.003-1.030)
[2018-05-28] MEDS: HYDROcodone/APAP 5/325 TABLET PO PRN ×2 (07:29→17:58)
[2018-05-28 08:01] VITALS: BP 132/72
[2018-05-28 08:02] VITALS: BP 129/74
[2018-05-28] MEDS: AMOXICILLIN/CLAV 875-125MG TABLET PO SCH ×2 (09:45→20:00)
[2018-05-28] MEDS: FERROUS GLUCONATE 324 MG TABLET PO SCH (09:45)
[2018-05-28] MEDS: SENNA/DOCUSATE TABLET PO SCH (09:45)
[2018-05-28] MEDS: GABAPENTIN 300 MG CAPSULE PO SCH ×2 (09:46→19:59)
[2018-05-28] MEDS: METOPROLOL TARTRATE 50 MG TABLET PO SCH ×2 (09:46→19:59)
[2018-05-28] MEDS: OXCARBAZEPINE 150 MG TABLET PO SCH ×2 (09:46→19:59)
[2018-05-28] MEDS ORDERED: FENTANYL PF 250 MCG/5ML ONE ×2 (14:06→16:13)
[2018-05-28] MEDS ORDERED: MIDAZOLAM 1 MG/ML, 2ML ONE ×2 (14:06→16:47)
[2018-05-28] MEDS ORDERED: LIDOCAINE 1%, 20ML ONE (14:34)
[2018-05-28] MEDS ORDERED: BUPIVACAINE/PF 0.5% ONE (14:35)
[2018-05-28] MEDS ORDERED: GLYCOPYRROLATE 0.2MG/1ML, 5ML ONE (15:00)
[2018-05-28] MEDS ORDERED: METOPROLOL 1 MG/ML, 5ML IV PRN (15:30)
[2018-05-28] MEDS ORDERED: EPHEDRINE 50 MG/ML, 1ML IVPush PRN (15:30)
[2018-05-28] MEDS ORDERED: ONDANSETRON 2MG/ML, 2ML IV PRN (15:30)
[2018-05-28] MEDS ORDERED: hydrALAzine 20 MG/ML, 1ML IV PRN (15:30)
[2018-05-28] MEDS ORDERED: ONDANSETRON ODT 8 MG PO PRN (15:30)
[2018-05-28] MEDS ORDERED: EPHEDRINE 50 MG/ML, 1ML IM PRN (15:30)
[2018-05-28] MEDS ORDERED: MIDAZOLAM 1 MG/ML, 2ML IV PRN (15:30)
[2018-05-28] MEDS ORDERED: OXYcodone 5 MG/5 ML ORAL.SOL UDC PO PRN (15:30)
[2018-05-28] MEDS ORDERED: FENTANYL PF 100 MCG/2ML IV PRN (15:30)
[2018-05-28] MEDS ORDERED: MORPHINE SULFATE 4 MG/ML, 1ML IVPush PRN (15:30)
[2018-05-28] MEDS ORDERED: HALOPERIDOL 5 MG/ML IV PRN (15:30)
[2018-05-28] MEDS ORDERED: PROPOFOL 10 MG/ML, 20ML ONE ×2 (16:24)
[2018-05-28] MEDS ORDERED: SUCCINYLCHOLINE 20 MG/ML, 10ML ONE (16:25)
[2018-05-28] MEDS ORDERED: DEXAMETHASONE 4 MG/ML, 1ML ONE (16:25)
[2018-05-28] MEDS ORDERED: ROCURONIUM 10MG/ML,5ML ONE (16:25)
[2018-05-28] MEDS ORDERED: ONDANSETRON 2MG/ML, 2ML ONE (16:25)
[2018-05-28] MEDS ORDERED: OXYcodone 5 MG/5 ML ORAL.SOL UDC ONE (17:20)
[2018-05-28] MEDS ORDERED: HYDROmorphone 1 MG/ML, 1ML IV PRN (19:00)
[2018-05-28 19:20] VITALS: BP 116/80
[2018-05-28] MEDS ORDERED: HYDROmorphone 2 MG/ML, 1ML ONE (19:45)
[2018-05-28] MEDS: ATORVASTATIN 40 MG TABLET PO SCH (19:59)
[2018-05-28] MEDS: CEFAZOLIN PMX 2GM/50ML 50 ML IVPB SCH (20:00)
[2018-05-28] MEDS: HYDROcodone/APAP 10/325 MG TABLET PO PRN (23:39)
[2018-05-29 00:02] VITALS: BP 97/60
[2018-05-29] MEDS: HYDROcodone/APAP 10/325 MG TABLET PO PRN ×4 (00:26→19:49)
[2018-05-29] MEDS: CEFAZOLIN PMX 2GM/50ML 50 ML IVPB SCH (03:13)
[2018-05-29] MEDS: HEPARIN 5,000 UNITS/ML, 1ML SQ SCH ×3 (03:13→18:00)
[2018-05-29 03:17] VITALS: BP 89/46
[2018-05-29 06:04] LABS: ANION GAP 6 mmol/L (5-15); CALCIUM 7.8 mg/dL (8.5-10.1); CHLORIDE 104 mmol/L (98-107)
[2018-05-29 06:05] LABS: CREATININE 0.76 mg/dL (0.55-1.02)
[2018-05-29 07:25] VITALS: BP 112/55
[2018-05-29] MEDS: AMOXICILLIN/CLAV 875-125MG TABLET PO SCH ×2 (09:51→19:49)
[2018-05-29] MEDS: GABAPENTIN 300 MG CAPSULE PO SCH ×2 (09:51→19:49)
[2018-05-29] MEDS: OXCARBAZEPINE 150 MG TABLET PO SCH ×2 (09:52→19:49)
[2018-05-29] MEDS: FERROUS GLUCONATE 324 MG TABLET PO SCH (09:52)
[2018-05-29] MEDS: SENNA/DOCUSATE TABLET PO SCH (09:52)
[2018-05-29] MEDS: METOPROLOL TARTRATE 50 MG TABLET PO SCH (09:52)
[2018-05-29] MEDS: POLYETHYLENE GLYCOL 17 GM PACKET PO PRN (09:53)
[2018-05-29 12:26] VITALS: BP 89/47
[2018-05-29] MEDS: ACETAMINOPHEN 325 MG TABLET PO PRN (18:06)
[2018-05-29 19:00] VITALS: BP 100/62
[2018-05-29] MEDS ORDERED: METOPROLOL TARTRATE 50 MG TABLET PO SCH (21:00)
[2018-05-30] MEDS: ATORVASTATIN 40 MG TABLET PO SCH ×2 (00:19→21:16)
[2018-05-30] MEDS: HEPARIN 5,000 UNITS/ML, 1ML SQ SCH ×3 (01:51→18:20)
[2018-05-30] MEDS: HYDROcodone/APAP 10/325 MG TABLET PO PRN ×6 (01:51→21:41)
[2018-05-30 02:30] VITALS: BP 109/50
[2018-05-30 06:50] VITALS: BP 108/63
[2018-05-30] MEDS: GABAPENTIN 300 MG CAPSULE PO SCH ×2 (08:55→21:17)
[2018-05-30] MEDS: AMOXICILLIN/CLAV 875-125MG TABLET PO SCH ×2 (08:56→21:16)
[2018-05-30] MEDS: SENNA/DOCUSATE TABLET PO SCH (08:56)
[2018-05-30] MEDS: FERROUS GLUCONATE 324 MG TABLET PO SCH (08:56)
[2018-05-30] MEDS: OXCARBAZEPINE 150 MG TABLET PO SCH ×2 (08:57→21:16)
[2018-05-30] MEDS: METOPROLOL TARTRATE 25 MG TABLET PO SCH ×2 (08:58→21:00)
[2018-05-30 12:00] VITALS: BP 97/60
[2018-05-30] MEDS: NICOTINE 14MG/24 HR PATCH.TD24 TD SCH (14:00)
[2018-05-30 20:09] VITALS: BP 112/68
[2018-05-31 02:35] VITALS: BP 104/61
[2018-05-31] MEDS: HEPARIN 5,000 UNITS/ML, 1ML SQ SCH ×3 (02:39→17:55)
[2018-05-31] MEDS: HYDROcodone/APAP 10/325 MG TABLET PO PRN ×4 (06:30→22:48)
[2018-05-31 09:00] VITALS: BP 107/66
[2018-05-31] MEDS: METOPROLOL TARTRATE 25 MG TABLET PO SCH ×2 (09:00→21:06)
[2018-05-31] MEDS: SENNA/DOCUSATE TABLET PO SCH (09:12)
[2018-05-31] MEDS: OXCARBAZEPINE 150 MG TABLET PO SCH ×2 (09:12→21:05)
[2018-05-31] MEDS: FERROUS GLUCONATE 324 MG TABLET PO SCH (09:12)
[2018-05-31] MEDS: GABAPENTIN 300 MG CAPSULE PO SCH ×2 (09:12→21:05)
[2018-05-31] MEDS: NICOTINE 14MG/24 HR PATCH.TD24 TD SCH (10:26)
[2018-05-31 17:11] VITALS: BP 105/50
[2018-05-31 19:54] VITALS: BP 124/76
[2018-05-31] MEDS: ATORVASTATIN 40 MG TABLET PO SCH (21:06)
[2018-06-01 03:20] VITALS: BP 121/70
[2018-06-01] MEDS: HEPARIN 5,000 UNITS/ML, 1ML SQ SCH ×3 (04:41→21:27)
[2018-06-01] MEDS: HYDROcodone/APAP 10/325 MG TABLET PO PRN ×5 (05:29→22:43)
[2018-06-01 07:27] VITALS: BP 114/67
[2018-06-01] MEDS: FERROUS GLUCONATE 324 MG TABLET PO SCH (07:58)
[2018-06-01] MEDS: SENNA/DOCUSATE TABLET PO SCH (07:59)
[2018-06-01] MEDS: GABAPENTIN 300 MG CAPSULE PO SCH ×2 (07:59→21:26)
[2018-06-01] MEDS: METOPROLOL TARTRATE 25 MG TABLET PO SCH ×2 (07:59→21:26)
[2018-06-01] MEDS: OXCARBAZEPINE 150 MG TABLET PO SCH ×2 (07:59→21:25)
[2018-06-01] MEDS: NICOTINE 14MG/24 HR PATCH.TD24 TD SCH (12:26)
[2018-06-01 16:53] VITALS: BP 127/77
[2018-06-01 18:35] VITALS: BP 104/66
[2018-06-01] MEDS: ATORVASTATIN 40 MG TABLET PO SCH (21:25)
[2018-06-02 01:18] VITALS: BP 124/77
[2018-06-02] MEDS: HEPARIN 5,000 UNITS/ML, 1ML SQ SCH ×3 (05:09→21:07)
[2018-06-02] MEDS: HYDROcodone/APAP 10/325 MG TABLET PO PRN ×3 (05:52→21:07)
[2018-06-02] MEDS: FERROUS GLUCONATE 324 MG TABLET PO SCH (09:04)
[2018-06-02] MEDS: METOPROLOL TARTRATE 25 MG TABLET PO SCH ×2 (09:04→21:09)
[2018-06-02] MEDS: SENNA/DOCUSATE TABLET PO SCH (09:04)
[2018-06-02] MEDS: OXCARBAZEPINE 150 MG TABLET PO SCH ×2 (09:04→21:07)
[2018-06-02] MEDS: GABAPENTIN 300 MG CAPSULE PO SCH ×2 (09:04→21:07)
[2018-06-02 10:24] VITALS: BP 117/72
[2018-06-02 13:32] VITALS: BP 124/79
[2018-06-02] MEDS ORDERED: RISPERIDONE 1 MG TABLET PO PRN (14:00)
[2018-06-02] MEDS ORDERED: LORazepam 1MG TABLET PO PRN (14:00)
[2018-06-02] MEDS: NICOTINE 14MG/24 HR PATCH.TD24 TD SCH (14:24)
[2018-06-02 20:35] VITALS: BP 95/61
[2018-06-02] MEDS ORDERED: ZOLPIDEM 10MG TABLET PO SCH (21:00)
[2018-06-02] MEDS: ATORVASTATIN 40 MG TABLET PO SCH (21:09)
[2018-06-02 21:10] VITALS: BP 125/76
[2018-06-03 02:35] VITALS: BP 119/73
[2018-06-03] MEDS: HEPARIN 5,000 UNITS/ML, 1ML SQ SCH ×3 (05:26→23:34)
[2018-06-03 07:50] VITALS: BP 115/69
[2018-06-03] MEDS: FERROUS GLUCONATE 324 MG TABLET PO SCH (09:37)
[2018-06-03] MEDS: GABAPENTIN 300 MG CAPSULE PO SCH ×2 (09:37→23:34)
[2018-06-03] MEDS: OXCARBAZEPINE 150 MG TABLET PO SCH ×2 (09:37→23:34)
[2018-06-03] MEDS: POLYETHYLENE GLYCOL 17 GM PACKET PO PRN (09:38)
[2018-06-03] MEDS: SENNA/DOCUSATE TABLET PO SCH (09:38)
[2018-06-03] MEDS: METOPROLOL TARTRATE 25 MG TABLET PO SCH ×2 (09:38→23:34)
[2018-06-03] MEDS: HYDROcodone/APAP 10/325 MG TABLET PO PRN ×3 (12:15→23:34)
[2018-06-03 14:00] VITALS: BP 124/72
[2018-06-03] MEDS: NICOTINE 14MG/24 HR PATCH.TD24 TD SCH (14:30)
[2018-06-03 20:50] VITALS: BP 133/70
[2018-06-03] MEDS ORDERED: ZOLPIDEM 5MG TABLET PO SCH (21:00)
[2018-06-03] MEDS: ATORVASTATIN 40 MG TABLET PO SCH (23:34)
[2018-06-04 02:30] VITALS: BP 105/62
[2018-06-04 07:23] VITALS: BP 133/87
[2018-06-04] MEDS: GABAPENTIN 300 MG CAPSULE PO SCH ×2 (08:55→20:24)
[2018-06-04] MEDS: METOPROLOL TARTRATE 25 MG TABLET PO SCH ×2 (08:55→20:24)
[2018-06-04] MEDS: SENNA/DOCUSATE TABLET PO SCH (08:55)
[2018-06-04] MEDS: FERROUS GLUCONATE 324 MG TABLET PO SCH (08:55)
[2018-06-04] MEDS: OXCARBAZEPINE 150 MG TABLET PO SCH ×2 (08:55→20:24)
[2018-06-04] MEDS: HEPARIN 5,000 UNITS/ML, 1ML SQ SCH ×2 (08:56→17:25)
[2018-06-04] MEDS ORDERED: ZOLPIDEM 5MG TABLET PO PRN (09:00)
[2018-06-04] MEDS: HYDROcodone/APAP 10/325 MG TABLET PO PRN ×2 (09:01→20:24)
[2018-06-04 12:08] VITALS: BP 115/71
[2018-06-04] MEDS: NICOTINE 14MG/24 HR PATCH.TD24 TD SCH (14:52)
[2018-06-04 18:47] VITALS: BP 114/66
[2018-06-04] MEDS: ATORVASTATIN 40 MG TABLET PO SCH (20:24)
[2018-06-05] MEDS: HEPARIN 5,000 UNITS/ML, 1ML SQ SCH ×3 (01:00→18:14)
[2018-06-05] MEDS: HYDROcodone/APAP 10/325 MG TABLET PO PRN ×3 (02:09→18:14)
[2018-06-05 03:37] VITALS: BP 117/70
[2018-06-05 10:12] VITALS: BP 127/80
[2018-06-05] MEDS: METOPROLOL TARTRATE 25 MG TABLET PO SCH ×2 (10:28→20:45)
[2018-06-05] MEDS: FERROUS GLUCONATE 324 MG TABLET PO SCH (10:28)
[2018-06-05] MEDS: GABAPENTIN 300 MG CAPSULE PO SCH ×2 (10:28→20:44)
[2018-06-05] MEDS: SENNA/DOCUSATE TABLET PO SCH (10:28)
[2018-06-05] MEDS: OXCARBAZEPINE 150 MG TABLET PO SCH ×2 (10:29→20:45)
[2018-06-05] MEDS: NICOTINE 14MG/24 HR PATCH.TD24 TD SCH (18:14)
[2018-06-05 20:30] VITALS: BP 114/76
[2018-06-05] MEDS: ATORVASTATIN 40 MG TABLET PO SCH (20:44)
[2018-06-06] MEDS: HEPARIN 5,000 UNITS/ML, 1ML SQ SCH ×3 (01:00→17:44)
[2018-06-06 01:52] VITALS: BP 117/77
[2018-06-06] MEDS: HYDROcodone/APAP 10/325 MG TABLET PO PRN ×3 (03:04→18:38)
[2018-06-06 06:30] VITALS: BP 128/80
[2018-06-06] MEDS: OXCARBAZEPINE 150 MG TABLET PO SCH ×2 (09:00→20:23)
[2018-06-06] MEDS: METOPROLOL TARTRATE 25 MG TABLET PO SCH ×2 (09:01→20:23)
[2018-06-06] MEDS: GABAPENTIN 300 MG CAPSULE PO SCH ×2 (09:01→20:23)
[2018-06-06] MEDS: FERROUS GLUCONATE 324 MG TABLET PO SCH (09:01)
[2018-06-06] MEDS: SENNA/DOCUSATE TABLET PO SCH (09:04)
[2018-06-06 12:24] VITALS: BP 112/64
[2018-06-06] MEDS ORDERED: IBUPROFEN 600 MG TABLET PO PRN (13:30)
[2018-06-06] MEDS: ACETAMINOPHEN 325 MG TABLET PO PRN (15:31)
[2018-06-06] MEDS: NICOTINE 14MG/24 HR PATCH.TD24 TD SCH (15:31)
[2018-06-06 19:11] VITALS: BP 117/69
[2018-06-06] MEDS: ATORVASTATIN 40 MG TABLET PO SCH (20:23)
[2018-06-07] MEDS: HEPARIN 5,000 UNITS/ML, 1ML SQ SCH ×3 (01:32→17:00)
[2018-06-07 03:20] VITALS: BP 113/72
[2018-06-07] MEDS: HYDROcodone/APAP 10/325 MG TABLET PO PRN (03:26)
[2018-06-07 07:56] VITALS: BP 104/69
[2018-06-07] MEDS: METOPROLOL TARTRATE 25 MG TABLET PO SCH (08:39)
[2018-06-07] MEDS: FERROUS GLUCONATE 324 MG TABLET PO SCH (08:39)
[2018-06-07] MEDS: OXCARBAZEPINE 150 MG TABLET PO SCH (08:39)
[2018-06-07] MEDS: GABAPENTIN 300 MG CAPSULE PO SCH (08:39)
[2018-06-07] MEDS: SENNA/DOCUSATE TABLET PO SCH (08:39)
[2018-06-07] MEDS ORDERED: METO25TA35 PO ×2 (12:10→14:29)
[2018-06-07] MEDS ORDERED: ATOR40TA78 PO (12:10)
[2018-06-07] MEDS ORDERED: SENN1TAB8 PO ×2 (12:10→14:31)
[2018-06-07] MEDS ORDERED: NICO-486 TD ×2 (12:10→14:26)
[2018-06-07] MEDS ORDERED: GABA300C10 PO (12:10)
[2018-06-07] MEDS ORDERED: HYDR-3307 PO (12:10)
[2018-06-07] MEDS ORDERED: OXCA150T18 PO (12:10)
[2018-06-07 13:21] VITALS: BP 134/76
[2018-06-07] MEDS ORDERED: ATOR40TA PO (14:25)
[2018-06-07] MEDS: NICOTINE 14MG/24 HR PATCH.TD24 TD SCH (14:48)
== END 2018-06-07 17:17 | disposition home or self-care (01) | DRG 908 ==
LOC: ED 18:26 → EDIP 22:08 → 4NOR 23:34
PROVIDERS: ADMIT Internal Medicine; ATTEND Internal Medicine
PROC: 0QSH06Z Reposition Left Tibia with Intramedullary Internal Fixation Device, Open Approach (ICD-10-PCS; 2018-05-28)
PROC: 3E0T3BZ Introduction of Anesthetic Agent into Peripheral Nerves and Plexi, Percutaneous Approach (ICD-10-PCS; 2018-05-28)
PROC: 0QPH04Z Removal of Internal Fixation Device from Left Tibia, Open Approach (ICD-10-PCS; principal; 2018-05-28 13:30)
DX: T43.592A Poisoning by other antipsychotics and neuroleptics, intentional self-harm, initial encounter (principal); S82.202A Unspecified fracture of shaft of left tibia, initial encounter for closed fracture; F31.60 Bipolar disorder, current episode mixed, unspecified; L03.115 Cellulitis of right lower limb; L03.116 Cellulitis of left lower limb; Z68.41 Body mass index [BMI] 40.0-44.9, adult; T42.1X2A Poisoning by iminostilbenes, intentional self-harm, initial encounter; E66.01 Morbid (severe) obesity due to excess calories; F12.90 Cannabis use, unspecified, uncomplicated; F15.10 Other stimulant abuse, uncomplicated; F17.210 Nicotine dependence, cigarettes, uncomplicated; G60.0 Hereditary motor and sensory neuropathy; I10 Essential (primary) hypertension; M41.9 Scoliosis, unspecified; F10.20 Alcohol dependence, uncomplicated; M19.90 Unspecified osteoarthritis, unspecified site; W18.39XA Other fall on same level, initial encounter; Y93.89 Activity, other specified; Y92.89 Other specified places as the place of occurrence of the external cause; Z59.0 Homelessness; Z86.73 Personal history of transient ischemic attack (TIA), and cerebral infarction without residual deficits; Z91.19 Patient's noncompliance with other medical treatment and regimen; Z91.5 Personal history of self-harm; Z87.81 Personal history of (healed) traumatic fracture; Z88.2 Allergy status to sulfonamides; Z88.1 Allergy status to other antibiotic agents; Z88.8 Allergy status to other drugs, medicaments and biological substances
CPT/HCPCS: 36415; 76001; 80048; 80053; 80202; 80307; 80329; 81025; 82040; 82140; 83605; 84145; 84703; 85025; 87040; 93005; 93970; 96365; 99285; C1713; G0378; J0295; J0690; J1100; J1170; J1644; J2250; J2405; J2704; J3010; J3370; J3490; C1769; G0480; J0330; J7030; J7040; J7050

== ENCOUNTER 2018-06-27 11:59 | Emergency (ER) | payer MEDICAID ==
[~2018-06-27] VITALS: Ht 162.6 cm; Wt 95.0 kg
[~2018-06-27 11:59] MED LIST changes: +ATOR40TA PO; +ATOR40TA78 PO; +FERR324T8 PO; +GABA300C10 PO; +HYDR-3307 PO; +IBUP-1223 PO; +METO25TA35 PO; +METO50TA6 PO; +NICO-486 TD; +OXCA150T18 PO; +OXCA150T3 PO; +SENN1TAB8 PO
[2018-06-27] MEDS ORDERED: DEXAMETHASONE 4 MG TABLET ONE (12:39)
[2018-06-27] MEDS ORDERED: ALBUTEROL/IPRATROPIUM 2.5MG/0.5MG, 3 ML ONE (12:50)
--- NOTE | 2018-06-27 12:56 | NUR ---
report given to Claude
[2018-06-27] MEDS ORDERED: DEXAMETHASONE 4 MG TABLET PO ONE (13:00)
[2018-06-27] MEDS ORDERED: ALBUTEROL/IPRATROPIUM 2.5MG/0.5MG, 3 ML NPPB ONE (13:00)
--- NOTE | 2018-06-27 13:19 | NUR ---
ASSUMED CARE PT IN BED NOTED COUGH ABLE TO TALK IF FULL SENTENCES
[2018-06-27 13:25] VITALS: BP 120/67
== END 2018-06-27 14:07 | disposition home or self-care (01) ==
LOC: ED 13:13
DX: J02.8 Acute pharyngitis due to other specified organisms (principal); B97.89 Other viral agents as the cause of diseases classified elsewhere; H10.022 Other mucopurulent conjunctivitis, left eye
CPT/HCPCS: 71045; 87081; 87880; 93005; 94640; 99284; J7620

== ENCOUNTER 2018-07-09 00:14 | Emergency (ER) | payer MEDICAID ==
[~2018-07-09] VITALS: Ht 160 cm; Wt 75.0 kg
--- NOTE | 2018-07-09 01:39 | NUR ---
pt resting on gurney with eyes closed, snoring, nadn, equal chest rise/fall observed, call light within reach. awaiting lab result
[2018-07-09] MEDS ORDERED: ALBUTEROL/IPRATROPIUM 2.5MG/0.5MG, 3 ML ONE (01:53)
[2018-07-09] MEDS ORDERED: ALBUTEROL/IPRATROPIUM 2.5MG/0.5MG, 3 ML NPPB ONE (02:00)
[2018-07-09 02:05] VITALS: BP 132/80
== END 2018-07-09 02:13 | disposition home or self-care (01) ==
LOC: ED 00:26
DX: J06.9 Acute upper respiratory infection, unspecified (principal)
CPT/HCPCS: 71045; 87081; 87880; 93005; 94640; 99284; J7620

== ENCOUNTER 2018-07-28 12:50 | Emergency (ER) | payer MEDICAID ==
[~2018-07-28] VITALS: Ht 162.6 cm; Wt 100.0 kg
[2018-07-28 14:38] LABS: BASOPHILS # (AUTO) 0.01 x10^3/uL (0-0.1); BASOPHILS % (AUTO) 0 % (0-1); EOSINOPHILS # (AUTO) 0.04 x10^3/uL (0-0.4); EOSINOPHILS % (AUTO) 0 % (1-7); LYMPHOCYTES # (AUTO) 1.07 x10^3/uL (1-3.4); LYMPHOCYTES % (AUTO) 10 % (22-44); MD NO; MEAN CORPUSCULAR HEMOGLOBIN 29.1 pg (27.0-34.8); MEAN CORPUSCULAR HGB CONC 33.8 g/dL (32.4-35.8); MEAN CORPUSCULAR VOLUME 85.9 fL (80-100); MEAN PLATELET VOLUME 8.4 fL (7.4-10.4); MONOCYTES # (AUTO) 0.39 x10^3/uL (0.2-0.8); MONOCYTES % (AUTO) 4 % (2-9); NEUTROPHILS # (AUTO) 9.46 x10^3/uL (1.8-6.8); NEUTROPHILS % (AUTO) 86 % (42-75); PLATELET COUNT 268 x10^3/uL (130-400); RED BLOOD COUNT 5.26 x10^6/uL (3.82-5.3); RED CELL DISTRIBUTION WIDTH 16.8 % (9.6-15.2)
[2018-07-28 14:40] LABS: ALBUMIN 3.5 g/dL (3.4-5.0); ANION GAP 7 mmol/L (5-15); CALCIUM 8.1 mg/dL (8.5-10.1); CHLORIDE 102 mmol/L (98-107); CREATININE 0.71 mg/dL (0.55-1.02)
[2018-07-28 14:45] LABS: TROPONIN I < 0.015 ng/mL (0.000-0.045)
--- NOTE | 2018-07-28 15:47 | NUR ---
TO ROOM 16
--- NOTE | 2018-07-28 16:13 | NUR ---
PT PRESENTS TO ED WITH GENERALIZED WEAKNESS X 2 DAYS, COUGH X 2 MONTHS. PT ATTACHED TO ALL MONITORS. SOLIS BROWN AT BEDSIDE TO ASSESS PT.
[2018-07-28] MEDS ORDERED: ONDANSETRON 2MG/ML, 2ML IVPush ONE (17:00)
[2018-07-28] MEDS ORDERED: FAMOTIDINE 20 MG/2 ML IVP ONE (17:00)
[2018-07-28] MEDS ORDERED: SODIUM CHLORIDE FLUSH 10ML SYR IVF ONE (17:00)
[2018-07-28] MEDS ORDERED: SODIUM CHLORIDE 0.9% 1,000ML IVBOLUS ONE (17:00)
--- NOTE | 2018-07-28 17:13 | NUR ---
PT REPORTS TO SOLIS BROWN THAT SHE HAD N/V TODAY. PIV ESTABLISHED, IVF INITIATED. PT DROWSY, ORIENTED X 4, RESPS EVEN AND UNLABORED.
[2018-07-28] MEDS ORDERED: FAMOTIDINE 20 MG/2 ML ONE (17:28)
[2018-07-28] MEDS ORDERED: ONDANSETRON 2MG/ML, 2ML ONE (17:28)
--- NOTE | 2018-07-28 18:07 | NUR ---
PT SLEEPING ON GURNEY, RESPS EVEN AND UNLABORED, NADN. ERP NOTIFIED PT DID NOT GET EKG ON ARRIVAL IN TRIAGE, AND C/O GENERALIZED WEAKNESS. EKG ORDERED BY ERP AND COMPLETED BY EDT.
[2018-07-28 18:46] VITALS: BP 94/56
== END 2018-07-28 18:48 | disposition home or self-care (01) ==
LOC: ED 16:04
DX: R53.1 Weakness (principal); R11.2 Nausea with vomiting, unspecified; F17.200 Nicotine dependence, unspecified, uncomplicated
CPT/HCPCS: 36415; 71045; 80048; 82040; 84484; 85025; 93005; 96361; 96374; 96375; 99284; J2405; J3490; J7030

== ENCOUNTER 2018-08-26 12:33 | Emergency (ER) | payer MEDICAID ==
[~2018-08-26] VITALS: Ht 162.6 cm; Wt 96.0 kg
[~2018-08-26 12:33] MED LIST changes: +SENN-177 PO; -SENN1TAB8 PO
[2018-08-26 12:41] VITALS: BP 108/65
--- NOTE | 2018-08-26 13:32 | NUR ---
REINSURANCE ANALYST: PT TO ROOM VIA PERSONAL WHEELCHAIR FROM TAL
[2018-08-26] MEDS ORDERED: AZITHROMYCIN 250 MG TABLET PO ONE (14:00)
[2018-08-26] MEDS ORDERED: CEFTRIAXONE 250 MG IM ONE (14:00)
[2018-08-26 14:16] LABS: CLUE CELLS NONE SEEN (NONE SEEN); WET PREP WBCS MODERATE (FEW)
[2018-08-26] MEDS ORDERED: CEFTRIAXONE 250 MG ONE (15:23)
[2018-08-26] MEDS ORDERED: AZITHROMYCIN 250 MG TABLET ONE ×2 (15:23→15:33)
--- NOTE | 2018-08-26 15:57 | NUR ---
MEDICATIONS ADMINISTERED (ROCEPHIN IM AND AzITHRO PO) W/OUT DIFFICULTY. HELPED PATIENT CHANGE (DID NOT SEE ANY INSECTS). REVIEWED IMPORTANCE OF COMPLIANCE WITH LICE TX AND ABX FOR VAGINAL INFECTION. PATIENT UPSET THAT SHE IS GOING TO THROW HER CKLOTHES OUT. PULLBOAT ENGINEER CORRECTED PATIENT THAT SHE WOULD JJUST NEED TO WASH & DRY ON HIGH HEAT
== END 2018-08-26 16:02 | disposition home or self-care (01) ==
LOC: ED 15:56
DX: A59.9 Trichomoniasis, unspecified (principal); N76.0 Acute vaginitis; B96.89 Other specified bacterial agents as the cause of diseases classified elsewhere; B85.0 Pediculosis due to Pediculus humanus capitis; F17.200 Nicotine dependence, unspecified, uncomplicated
CPT/HCPCS: 87210; 87491; 87591; 87808; 96372; 99283; J0696

== ENCOUNTER 2019-01-01 08:49 | Emergency (ER) | payer MEDICAID ==
[~2019-01-01] VITALS: Ht 167.6 cm; Wt 90.9 kg
[2019-01-01 18:50] VITALS: BP 124/81
== END 2019-01-02 03:54 | disposition home or self-care (01) ==
LOC: ED 13:33
DX: R45.851 Suicidal ideations (principal); F15.20 Other stimulant dependence, uncomplicated; R41.0 Disorientation, unspecified; F10.120 Alcohol abuse with intoxication, uncomplicated; Z72.9 Problem related to lifestyle, unspecified
CPT/HCPCS: 36415; 70450; 71045; 80053; 80307; 81003; 85025; 99284

== ENCOUNTER 2019-07-09 08:52 | Inpatient (IN) | payer MEDICAID ==
[~2019-07-09] VITALS: Ht 170.2 cm; Wt 92.2 kg
[~2019-07-09 08:52] MED LIST changes: +AMOX1TAB64 PO; +DOXY100T23 PO; -HYDR-3307 PO; +HYDR-36 PO
--- NOTE | 2019-07-09 09:14 | NUR ---
PRESENTS VIA REMSA FROM LONGTERM FOR "WEEPING LOWER LEG WOUNDS". APPEARS NON TOXIC. AFEBRILE. HOWEVER, HR 120. BOTH LOWER LEGS QUITE SWOLLEN WITH SMALL HEALING ULCERATION TO LEFT LEG, RIGHT ANKLE WITH LATERAL ULCERATION OPEN AND WEEPING
--- NOTE | 2019-07-09 09:25 | NUR ---
RADIOLOGY AT BEDSIDE
--- NOTE | 2019-07-09 10:20 | NUR ---
PIV PLACED FROM WHICH LABS WERE DRAWN VSS ON ROOM AIR ON NIBP/POX ULTRASOUND AT BEDSIDE
--- NOTE | 2019-07-09 10:22 | NUR ---
ER PROVIDER MADE AWARE OF CONTINUED TACHYCARDIA (IVF AND ABX?) PROVIDER TO WAIT ON US RESULT THEN PROCEED ACCORDINGLY
[2019-07-09 10:28] LABS: BASOPHILS # (AUTO) 0.05 x10^3/uL (0-0.1); BASOPHILS % (AUTO) 0 % (0-1); EOSINOPHILS % (AUTO) 1 % (1-7); LYMPHOCYTES # (AUTO) 2.19 x10^3/uL (1-3.4); LYMPHOCYTES % (AUTO) 13 % (22-44); MD NO; MEAN CORPUSCULAR HEMOGLOBIN 28.3 pg (27.0-34.8); MEAN CORPUSCULAR HGB CONC 33.1 g/dL (32.4-35.8); MEAN CORPUSCULAR VOLUME 85.5 fL (80-100); MEAN PLATELET VOLUME 7.9 fL (7.4-10.4); MONOCYTES # (AUTO) 1.08 x10^3/uL (0.2-0.8); MONOCYTES % (AUTO) 6 % (2-9); NEUTROPHILS # (AUTO) 13.35 x10^3/uL (1.8-6.8); NEUTROPHILS % (AUTO) 79 % (42-75); PLATELET COUNT 305 x10^3/uL (130-400); RED CELL DISTRIBUTION WIDTH 14.8 % (9.6-15.2)
[2019-07-09 10:38] LABS: ALBUMIN 3.3 g/dL (3.4-5.0); ANION GAP 6 mmol/L (5-15); CALCIUM 8.9 mg/dL (8.5-10.1); CHLORIDE 102 mmol/L (98-107)
[2019-07-09 10:39] LABS: CREATININE 0.66 mg/dL (0.55-1.02)
--- NOTE | 2019-07-09 10:50 | NUR ---
Lab at bedside. Blood cultures and PCT obtained
[2019-07-09] MEDS ORDERED: VANCOMYCIN 2,000 MG in SODIUM CHLORIDE 0.9% 500 ML IV ONE (11:00)
[2019-07-09] MEDS ORDERED: PIPERACILLIN/TAZO/PMX 3.375GM 50 ML IVPB ONE (11:00)
[2019-07-09] MEDS ORDERED: SODIUM CHLORIDE 0.9% 1,000ML IVBOLUS ONE (11:00)
[2019-07-09] MEDS ORDERED: VANCOMYCIN PER PHARMACY MC PRN ×2 (11:00→11:30)
[2019-07-09] MEDS ORDERED: PIPERACILLIN/TAZO/PMX 3.375GM 50 ML ONE (11:05)
--- NOTE | 2019-07-09 11:10 | NUR ---
Abx and Ivf started per emar (blood cultures drawn 15 minutes prior)
[2019-07-09] MEDS ORDERED: hydrALAzine 20 MG/ML, 1ML IVPush PRN (11:30)
[2019-07-09] MEDS ORDERED: LIDODERM 5% PATCH TD PRN (11:30)
[2019-07-09] MEDS ORDERED: METOCLOPRAMIDE 5 MG/ML, 2ML IVPush PRN (11:30)
[2019-07-09] MEDS: NICOTINE 14MG/24 HR PATCH.TD24 TD SCH (11:30)
[2019-07-09] MEDS ORDERED: LABETALOL 5MG/ML, 20ML IVPush PRN (11:30)
[2019-07-09] MEDS ORDERED: POLYETHYLENE GLYCOL 17 GM PACKET PO PRN (11:30)
[2019-07-09] MEDS ORDERED: DOCUSATE 100 MG CAPSULE PO PRN (11:30)
[2019-07-09] MEDS ORDERED: ONDANSETRON ODT 4 MG PO PRN (11:30)
[2019-07-09] MEDS ORDERED: AMPICILLIN/SULBACTAM 3 GM in SODIUM CHLORIDE 0.9% 100 ML IV SCH (11:30)
--- NOTE | 2019-07-09 12:14 | NUR ---
ZOSYN AND 1L NS COMPLETE. VANCOMYCIN ADMINISTERED PER EMAR. UNASYN HELD PATIENT JUST RECEIVED LOADING DOSE OF ZOSYN HR REMAIN 110-115, HOWEVER AFEBRILE
[2019-07-09] MEDS ORDERED: ENOXAPARIN 40 MG/0.4 ML ONE (12:24)
[2019-07-09] MEDS: ENOXAPARIN 40 MG/0.4 ML SQ SCH (12:27)
--- NOTE | 2019-07-09 12:27 | NUR ---
TASK RN: PT MEDICATED PER ORDER.
[2019-07-09] MEDS: SODIUM CHLORIDE 0.9% 1,000 ML IV SCH ×2 (12:55→22:35)
--- NOTE | 2019-07-09 13:31 | NUR ---
UP TO BEDSIDE TO VOID (COMMODE) CLEAN CATCH URINE OBTAINED AND SENT TO LAB PROVIDED WITH LUNCH TRAY VANCOMYCIN INFUSING INTERMITTENTLY (PATIENT KEEP BENDING HER ARM IN HER SLEEP)
[2019-07-09 13:52] LABS: MICROSCOPIC NOT IND
[2019-07-09 13:59] LABS: CULTURE INDICATED? NO
[2019-07-09 14:02] LABS: AMPHETAMINE SCREEN, URINE Positive (Negative); BARBITURATE SCREEN, URINE Negative (Negative); BENZODIAZEPINE SCREEN, URINE Negative (Negative); CANNABINOID SCREEN, URINE Negative (Negative); COCAINE SCREEN, URINE Negative (Negative); METHADONE SCREEN, URINE Negative (Negative); OPIATE SCREEN, URINE Negative (Negative)
[2019-07-09] MEDS ORDERED: PHARMACOKINETIC MONITORING MC PRN (15:30)
[2019-07-09 16:06] VITALS: BP 112/73
[2019-07-09 20:03] VITALS: BP 138/83
[2019-07-09] MEDS: AMPICILLIN/SULBACTAM 3 GM in SODIUM CHLORIDE 0.9% 100 ML IV SCH (22:36)
[2019-07-10] MEDS: VANCOMYCIN 1,900 MG in SODIUM CHLORIDE 0.9% 250 ML IV SCH ×2 (00:31→11:56)
[2019-07-10 00:39] VITALS: BP 134/81
[2019-07-10] MEDS: AMPICILLIN/SULBACTAM 3 GM in SODIUM CHLORIDE 0.9% 100 ML IV SCH ×2 (04:21→10:07)
[2019-07-10 07:19] LABS: MEAN CORPUSCULAR HEMOGLOBIN 28.2 pg (27.0-34.8); MEAN CORPUSCULAR VOLUME 85.5 fL (80-100); MEAN PLATELET VOLUME 7.7 fL (7.4-10.4); PLATELET COUNT 272 x10^3/uL (130-400); RED BLOOD COUNT 4.34 x10^6/uL (3.82-5.3)
[2019-07-10 07:25] LABS: ANION GAP 8 mmol/L (5-15); CALCIUM 8.4 mg/dL (8.5-10.1); CHLORIDE 106 mmol/L (98-107)
[2019-07-10 07:26] LABS: CREATININE 0.51 mg/dL (0.55-1.02)
[2019-07-10] MEDS: SODIUM CHLORIDE 0.9% 1,000 ML IV SCH ×2 (07:26→17:13)
[2019-07-10 07:43] LABS: BASOPHILS # (AUTO) 0.02 x10^3/uL (0-0.1); BASOPHILS % (AUTO) 0 % (0-1); EOSINOPHILS # (AUTO) 0.22 x10^3/uL (0-0.4); EOSINOPHILS % (AUTO) 3 % (1-7); LYMPHOCYTES # (AUTO) 1.28 x10^3/uL (1-3.4); LYMPHOCYTES % (AUTO) 16 % (22-44); MD SCAN; MONOCYTES # (AUTO) 0.77 x10^3/uL (0.2-0.8); MONOCYTES % (AUTO) 9 % (2-9); NEUTROPHILS # (AUTO) 5.91 x10^3/uL (1.8-6.8); NEUTROPHILS % (AUTO) 72 % (42-75)
[2019-07-10 08:09] VITALS: BP 140/86
[2019-07-10] MEDS: NICOTINE 14MG/24 HR PATCH.TD24 TD SCH (11:14)
[2019-07-10] MEDS: ENOXAPARIN 40 MG/0.4 ML SQ SCH (11:14)
[2019-07-10 14:00] VITALS: BP 151/86
[2019-07-10] MEDS: CEFTAROLINE 600 MG in SODIUM CHLORIDE 0.9% 100 ML IV SCH ×2 (14:00→18:12)
[2019-07-10 15:59] LABS: RAPID INFLUENZA A Negative (Negative); RAPID INFLUENZA B Negative (Negative)
[2019-07-10 19:59] VITALS: BP 141/75
[2019-07-10] MEDS: ACETAMINOPHEN 325 MG TABLET PO PRN (20:09)
[2019-07-11 02:09] VITALS: BP 127/84
[2019-07-11] MEDS: SODIUM CHLORIDE 0.9% 1,000 ML IV SCH ×3 (02:16→23:13)
[2019-07-11] MEDS: ACETAMINOPHEN 325 MG TABLET PO PRN ×2 (02:23→13:26)
[2019-07-11] MEDS: CEFTAROLINE 600 MG in SODIUM CHLORIDE 0.9% 100 ML IV SCH (05:39)
[2019-07-11 07:11] VITALS: BP 140/94
[2019-07-11] MEDS: NICOTINE 14MG/24 HR PATCH.TD24 TD SCH (07:16)
[2019-07-11 07:52] LABS: BASOPHILS % (AUTO) 0 % (0-1); EOSINOPHILS # (AUTO) 0.01 x10^3/uL (0-0.4); EOSINOPHILS % (AUTO) 0 % (1-7); LYMPHOCYTES # (AUTO) 0.48 x10^3/uL (1-3.4); LYMPHOCYTES % (AUTO) 6 % (22-44); MD NO; MEAN CORPUSCULAR HEMOGLOBIN 28.1 pg (27.0-34.8); MEAN CORPUSCULAR HGB CONC 32.8 g/dL (32.4-35.8); MEAN CORPUSCULAR VOLUME 85.8 fL (80-100); MEAN PLATELET VOLUME 7.5 fL (7.4-10.4); MONOCYTES # (AUTO) 0.73 x10^3/uL (0.2-0.8); MONOCYTES % (AUTO) 9 % (2-9); NEUTROPHILS # (AUTO) 6.93 x10^3/uL (1.8-6.8); NEUTROPHILS % (AUTO) 85 % (42-75); PLATELET COUNT 268 x10^3/uL (130-400); RED BLOOD COUNT 4.58 x10^6/uL (3.82-5.3); RED CELL DISTRIBUTION WIDTH 15.1 % (9.6-15.2)
[2019-07-11 08:04] LABS: ANION GAP 5 mmol/L (5-15); CALCIUM 8.7 mg/dL (8.5-10.1); CHLORIDE 102 mmol/L (98-107); CREATININE 0.59 mg/dL (0.55-1.02)
[2019-07-11] MEDS: ENOXAPARIN 40 MG/0.4 ML SQ SCH (11:39)
[2019-07-11 13:11] VITALS: BP 126/75
[2019-07-11] MEDS ORDERED: CEFTRIAXONE PMX 2GM/50ML 50 ML IV SCH (18:00)
[2019-07-11] MEDS ORDERED: VANCOMYCIN PER PHARMACY MC PRN (18:00)
[2019-07-11] MEDS ORDERED: PHARMACOKINETIC MONITORING MC PRN (19:00)
[2019-07-11] MEDS ORDERED: PHARMACOKINETIC CONSULTATION MC ONE (19:00)
[2019-07-11] MEDS ORDERED: VANCOMYCIN 2,000 MG in SODIUM CHLORIDE 0.9% 500 ML IV ONE (19:00)
[2019-07-11 20:35] VITALS: BP 127/70
[2019-07-12 00:44] VITALS: BP 107/67
[2019-07-12] MEDS ORDERED: VANCOMYCIN 2,000 MG in SODIUM CHLORIDE 0.9% 500 ML IV ONE (01:00)
[2019-07-12] MEDS: CEFTRIAXONE PMX 2GM/50ML 50 ML IV SCH ×3 (01:09→21:04)
[2019-07-12] MEDS ORDERED: VANCOMYCIN 1,500 MG in SODIUM CHLORIDE 0.9% 250 ML IV SCH (03:00)
[2019-07-12] MEDS: ACETAMINOPHEN 325 MG TABLET PO PRN (03:19)
[2019-07-12] MEDS: ACYCLOVIR 900 MG in SODIUM CHLORIDE 0.9% 250 ML IV SCH ×4 (05:00→22:07)
[2019-07-12 07:09] LABS: ANION GAP 6 mmol/L (5-15); CHLORIDE 105 mmol/L (98-107); CREATININE 0.54 mg/dL (0.55-1.02)
[2019-07-12 07:17] VITALS: BP 108/67
[2019-07-12 07:30] LABS: BASOPHILS % (AUTO) 0 % (0-1); EOSINOPHILS % (AUTO) 0 % (1-7); LYMPHOCYTES % (AUTO) 27 % (22-44); MD NO; MEAN CORPUSCULAR HEMOGLOBIN 27.9 pg (27.0-34.8); MEAN CORPUSCULAR HGB CONC 32.7 g/dL (32.4-35.8); MEAN CORPUSCULAR VOLUME 85.2 fL (80-100); MEAN PLATELET VOLUME 8.1 fL (7.4-10.4); MONOCYTES # (AUTO) 0.71 x10^3/uL (0.2-0.8); MONOCYTES % (AUTO) 16 % (2-9); NEUTROPHILS # (AUTO) 2.54 x10^3/uL (1.8-6.8); NEUTROPHILS % (AUTO) 57 % (42-75); PLATELET COUNT 238 x10^3/uL (130-400); RED BLOOD COUNT 4.27 x10^6/uL (3.82-5.3); RED CELL DISTRIBUTION WIDTH 14.8 % (9.6-15.2)
[2019-07-12 07:31] LABS: HEMOGRAM NOTE RECHECKED
[2019-07-12] MEDS: ENOXAPARIN 40 MG/0.4 ML SQ SCH (08:27)
[2019-07-12] MEDS: NICOTINE 14MG/24 HR PATCH.TD24 TD SCH (08:27)
[2019-07-12] MEDS: VANCOMYCIN 1,500 MG in SODIUM CHLORIDE 0.9% 250 ML IV SCH ×2 (09:15→16:36)
[2019-07-12 13:23] VITALS: BP 128/71
[2019-07-12] MEDS ORDERED: CALCIUM GLUCONATE 4.6 MEQ in SODIUM CHLORIDE 0.9% 100 ML IV ONE ×2 (16:00→19:30)
[2019-07-12 16:14] LABS: AMPHETAMINE SCREEN, URINE Negative (Negative); BARBITURATE SCREEN, URINE Negative (Negative); BENZODIAZEPINE SCREEN, URINE Negative (Negative); CANNABINOID SCREEN, URINE Negative (Negative); COCAINE SCREEN, URINE Negative (Negative); METHADONE SCREEN, URINE Negative (Negative); OPIATE SCREEN, URINE Negative (Negative)
[2019-07-12 19:13] VITALS: BP 95/61
[2019-07-12] MEDS: SODIUM CHLORIDE 0.9% 1,000 ML IV SCH (19:24)
[2019-07-13 00:05] VITALS: BP 100/64
[2019-07-13] MEDS: VANCOMYCIN 1,500 MG in SODIUM CHLORIDE 0.9% 250 ML IV SCH ×2 (01:12→10:09)
[2019-07-13] MEDS: ACYCLOVIR 900 MG in SODIUM CHLORIDE 0.9% 250 ML IV SCH (06:13)
[2019-07-13 06:45] LABS: BASOPHILS # (AUTO) 0.02 x10^3/uL (0-0.1); BASOPHILS % (AUTO) 0 % (0-1); EOSINOPHILS # (AUTO) 0.06 x10^3/uL (0-0.4); EOSINOPHILS % (AUTO) 1 % (1-7); LYMPHOCYTES # (AUTO) 1.57 x10^3/uL (1-3.4); LYMPHOCYTES % (AUTO) 30 % (22-44); MD NO; MEAN CORPUSCULAR HEMOGLOBIN 27.9 pg (27.0-34.8); MEAN CORPUSCULAR HGB CONC 32.5 g/dL (32.4-35.8); MEAN CORPUSCULAR VOLUME 85.9 fL (80-100); MEAN PLATELET VOLUME 7.9 fL (7.4-10.4); MONOCYTES # (AUTO) 0.51 x10^3/uL (0.2-0.8); MONOCYTES % (AUTO) 10 % (2-9); NEUTROPHILS % (AUTO) 58 % (42-75); PLATELET COUNT 215 x10^3/uL (130-400); RED BLOOD COUNT 4.19 x10^6/uL (3.82-5.3)
[2019-07-13 06:47] LABS: ALBUMIN 2.4 g/dL (3.4-5.0); ANION GAP 6 mmol/L (5-15); CHLORIDE 103 mmol/L (98-107)
[2019-07-13 07:07] VITALS: BP 115/74
[2019-07-13] MEDS: CEFTRIAXONE PMX 2GM/50ML 50 ML IV SCH (08:47)
[2019-07-13] MEDS: NICOTINE 14MG/24 HR PATCH.TD24 TD SCH ×2 (11:30→16:10)
[2019-07-13] MEDS: DOXYCYCLINE 100MG TABLET PO SCH ×2 (12:03→21:16)
[2019-07-13] MEDS: ENOXAPARIN 40 MG/0.4 ML SQ SCH (12:03)
[2019-07-13 14:20] VITALS: BP 102/65
[2019-07-13 18:53] VITALS: BP 105/70
[2019-07-14 02:00] VITALS: BP 110/75
[2019-07-14 07:17] VITALS: BP 113/68
[2019-07-14] MEDS: DOXYCYCLINE 100MG TABLET PO SCH ×2 (08:50→21:18)
[2019-07-14] MEDS: ENOXAPARIN 40 MG/0.4 ML SQ SCH (11:24)
[2019-07-14] MEDS: NICOTINE 14MG/24 HR PATCH.TD24 TD SCH (11:37)
[2019-07-14] MEDS ORDERED: LIDOCAINE-MPF 1%, 5ML ONE (13:26)
[2019-07-14 14:40] VITALS: BP 94/65
[2019-07-14 18:51] VITALS: BP 120/76
[2019-07-15 07:29] VITALS: BP 131/83
[2019-07-15] MEDS: DOXYCYCLINE 100MG TABLET PO SCH ×2 (11:11→21:41)
[2019-07-15] MEDS: ENOXAPARIN 40 MG/0.4 ML SQ SCH (11:11)
[2019-07-15] MEDS: NICOTINE 14MG/24 HR PATCH.TD24 TD SCH (11:12)
[2019-07-15 12:45] VITALS: BP 123/81
[2019-07-15] MEDS ORDERED: CYANOCOBALAMIN 1,000 MCG/ML, 1ML IM ONE (15:00)
[2019-07-15 19:24] VITALS: BP 130/76
[2019-07-16 01:00] VITALS: BP 123/77
[2019-07-16 06:58] VITALS: BP 136/88
[2019-07-16] MEDS: DOXYCYCLINE 100MG TABLET PO SCH ×2 (09:51→21:00)
[2019-07-16] MEDS: NICOTINE 14MG/24 HR PATCH.TD24 TD SCH (09:52)
[2019-07-16] MEDS: ENOXAPARIN 40 MG/0.4 ML SQ SCH (09:53)
[2019-07-16 13:18] VITALS: BP 145/86
[2019-07-16] MEDS ORDERED: CYANOCOBALAMIN 1,000 MCG/ML, 1ML IM ONE (17:30)
[2019-07-16 20:12] VITALS: BP 122/78
[2019-07-17 00:56] VITALS: BP 137/69
[2019-07-17 08:24] VITALS: BP 128/85
[2019-07-17] MEDS: DOXYCYCLINE 100MG TABLET PO SCH ×2 (09:52→21:51)
[2019-07-17] MEDS: NICOTINE 14MG/24 HR PATCH.TD24 TD SCH (09:52)
[2019-07-17] MEDS: ENOXAPARIN 40 MG/0.4 ML SQ SCH (09:53)
[2019-07-17 13:25] VITALS: BP 130/89
[2019-07-17 18:48] VITALS: BP 111/71
[2019-07-18 00:18] VITALS: BP 126/73
[2019-07-18 06:53] VITALS: BP 129/90
[2019-07-18] MEDS ORDERED: CYANOCOBALAMIN 1,000 MCG TABLET PO SCH (09:00)
[2019-07-18] MEDS: DOXYCYCLINE 100MG TABLET PO SCH (09:34)
[2019-07-18] MEDS ORDERED: DOXY100T PO (09:39)
[2019-07-18] MEDS ORDERED: ACET325T26 PO (09:39)
[2019-07-18] MEDS ORDERED: CYAN-27 PO (09:39)
[2019-07-18] MEDS: NICOTINE 14MG/24 HR PATCH.TD24 TD SCH (11:30)
[2019-07-18] MEDS: ENOXAPARIN 40 MG/0.4 ML SQ SCH (11:30)
[2019-07-18] MEDS ORDERED: FLU VACC QS2019-20 36MOS UP/PF 0.5 ML IM-VACC ONE (11:30)
== END 2019-07-18 11:58 | disposition home or self-care (01) | DRG 812 ==
LOC: ED 10:54 → EDIP 10:55 → 3N 14:53
PROVIDERS: ADMIT Internal Medicine; ATTEND Internal Medicine
DX: T43.621A Poisoning by amphetamines, accidental (unintentional), initial encounter (principal); A41.9 Sepsis, unspecified organism; G92 Toxic encephalopathy; L03.115 Cellulitis of right lower limb; E87.1 Hypo-osmolality and hyponatremia; G60.0 Hereditary motor and sensory neuropathy; L03.116 Cellulitis of left lower limb; E74.39 Other disorders of intestinal carbohydrate absorption; F15.10 Other stimulant abuse, uncomplicated; F17.200 Nicotine dependence, unspecified, uncomplicated; F31.9 Bipolar disorder, unspecified; Z59.0 Homelessness; Z88.2 Allergy status to sulfonamides; Z99.3 Dependence on wheelchair; Z88.8 Allergy status to other drugs, medicaments and biological substances; Y92.89 Other specified places as the place of occurrence of the external cause; M19.079 Primary osteoarthritis, unspecified ankle and foot
CPT/HCPCS: 36415; 70450; 71046; 80048; 80069; 80074; 80202; 80307; 81003; 82040; 82140; 82607; 83605; 83735; 84100; 84145; 84443; 85025; 87040; 87081; 87400; 87806; 87880; 90686; 93306; 93970; 96361; 96365; 99285; G0378; J0133; J0295; J0610; J0696; J0712; J1650; J2543; J3370; G0475; J3420; J7030; J7040; J7050

== ENCOUNTER 2019-07-22 21:50 | Emergency (ER) | payer MEDICAID ==
[~2019-07-22] VITALS: Ht 162.6 cm; Wt 85.0 kg
[~2019-07-22 21:50] MED LIST changes: +ACET325T26 PO; +CYAN-27 PO; +DOXY100T PO
--- NOTE | 2019-07-22 21:58 | NUR ---
bib remsa d/t left foot pain with redness hx of chronic leg pain bipolar current no meds taking
--- NOTE | 2019-07-22 21:59 | NUR ---
remsa given 50mcg fentanyl ivp en rout
[2019-07-22 22:54] LABS: BASOPHILS # (AUTO) 0.03 x10^3/uL (0-0.1); BASOPHILS % (AUTO) 0 % (0-1); EOSINOPHILS # (AUTO) 0.24 x10^3/uL (0-0.4); EOSINOPHILS % (AUTO) 3 % (1-7); LYMPHOCYTES # (AUTO) 2.25 x10^3/uL (1-3.4); LYMPHOCYTES % (AUTO) 24 % (22-44); MD NO; MEAN CORPUSCULAR HEMOGLOBIN 27.9 pg (27.0-34.8); MEAN CORPUSCULAR HGB CONC 32.9 g/dL (32.4-35.8); MEAN CORPUSCULAR VOLUME 84.7 fL (80-100); MEAN PLATELET VOLUME 8.1 fL (7.4-10.4); MONOCYTES % (AUTO) 14 % (2-9); NEUTROPHILS # (AUTO) 5.47 x10^3/uL (1.8-6.8); NEUTROPHILS % (AUTO) 59 % (42-75); PLATELET COUNT 459 x10^3/uL (130-400); RED BLOOD COUNT 4.15 x10^6/uL (3.82-5.3); RED CELL DISTRIBUTION WIDTH 15.1 % (9.6-15.2)
--- NOTE | 2019-07-22 22:57 | NUR ---
pt is sleeping dr street at bedside for recheck
[2019-07-22 23:06] LABS: ALANINE AMINOTRANSFERASE 22 U/L (12-78); ALBUMIN 3.1 g/dL (3.4-5.0); ANION GAP 4 mmol/L (5-15); CALCIUM 8.7 mg/dL (8.5-10.1); CHLORIDE 105 mmol/L (98-107); CREATININE 0.75 mg/dL (0.55-1.02)
[2019-07-22 23:08] LABS: ALKALINE PHOSPHATASE 107 U/L (45-117); BILIRUBIN,TOTAL 0.3 mg/dL (0.2-1.0); TOTAL PROTEIN 8.1 g/dL (6.4-8.2)
[2019-07-22] MEDS ORDERED: KETOROLAC 30 MG/1 ML IVPush ONE (23:30)
[2019-07-22] MEDS ORDERED: KETOROLAC 30 MG/1 ML ONE (23:35)
--- NOTE | 2019-07-22 23:46 | NUR ---
given toradol ivp per muscle pain pt is sleeping with snoring dc order was received
--- NOTE | 2019-07-23 01:16 | NUR ---
jagruti webb made pt up in the w/c ( pt's own w/c) dc'd pt after given dc instruction
[2019-07-23 01:17] VITALS: BP 121/68
== END 2019-07-23 01:19 | disposition home or self-care (01) ==
LOC: ED 07-23 01:13
DX: S90.32XA Contusion of left foot, initial encounter (principal); F17.210 Nicotine dependence, cigarettes, uncomplicated; M25.572 Pain in left ankle and joints of left foot; X58.XXXA Exposure to other specified factors, initial encounter; Y93.89 Activity, other specified; Y92.410 Unspecified street and highway as the place of occurrence of the external cause; Y99.8 Other external cause status
CPT/HCPCS: 36415; 73610; 73630; 80053; 80307; 85025; 93971; 96374; 99285; J1885

== ENCOUNTER 2019-08-12 08:19 | Inpatient (IN) | payer MEDICAID ==
[~2019-08-12] VITALS: Ht 170.2 cm; Wt 94.0 kg
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
[2019-08-12 09:11] LABS: ALANINE AMINOTRANSFERASE 17 U/L (12-78); ANION GAP 5 mmol/L (5-15); CALCIUM 8.5 mg/dL (8.5-10.1); CHLORIDE 104 mmol/L (98-107); CREATININE 0.55 mg/dL (0.55-1.02)
[2019-08-12 09:13] LABS: ALKALINE PHOSPHATASE 120 U/L (45-117); BILIRUBIN,TOTAL 0.3 mg/dL (0.2-1.0); TOTAL PROTEIN 8.1 g/dL (6.4-8.2)
[2019-08-12 09:21] LABS: MEAN CORPUSCULAR HEMOGLOBIN 27.4 pg (27.0-34.8); MEAN CORPUSCULAR HGB CONC 32.6 g/dL (32.4-35.8); MEAN CORPUSCULAR VOLUME 83.9 fL (80-100); MEAN PLATELET VOLUME 7.3 fL (7.4-10.4); PLATELET COUNT 368 x10^3/uL (130-400)
[2019-08-12 09:56] LABS: BASOPHILS # (AUTO) 0.04 x10^3/uL (0-0.1); BASOPHILS % (AUTO) 0 % (0-1); EOSINOPHILS # (AUTO) 0.16 x10^3/uL (0-0.4); EOSINOPHILS % (AUTO) 1 % (1-7); LYMPHOCYTES # (AUTO) 1.88 x10^3/uL (1-3.4); LYMPHOCYTES % (AUTO) 16 % (22-44); MD SCAN; MONOCYTES # (AUTO) 0.83 x10^3/uL (0.2-0.8); MONOCYTES % (AUTO) 7 % (2-9); NEUTROPHILS # (AUTO) 9.25 x10^3/uL (1.8-6.8); NEUTROPHILS % (AUTO) 76 % (42-75)
--- NOTE | 2019-08-12 10:24 | NUR ---
PT SLEEPS UNLESS STIMULATED, VSS, RESP NON LABORED.
--- NOTE | 2019-08-12 10:25 | NUR ---
LABS REVIEWED. ALCOHOL LEVEL = 0
--- NOTE | 2019-08-12 11:08 | NUR ---
PT REPOSITIONED X 2 RN. FEET CLEANSED WITH PHOTOPLEX. PT ARROUSES TO VERBAL STIM AND FOLLOWS SIMPLE COMMANDS TO UNCROSS LEGS, LIFT FEET, LAY ON HER BACK. BUT NO VERBAL RESPONSE. PT RTNS TO SLEEPING WHEN NOT STIM. +OBSTRUCTIVE SLEEP APNEA NOTED. HOB UP 40DEGREES
--- NOTE | 2019-08-12 11:45 | NUR ---
DR SPENCER AT BEDSIDE. NEGATIVE ALCOHOL LEVEL DISCUSSED. PT CONTINUES TO BE MOSTLY SLEEPING, ARROUSES MINIMALLY TO VERBAL STIMULI. ORDER EC'D TO STRAIGHT CATH FOR DOA AND HEAD CT.
[2019-08-12 12:36] LABS: MICROSCOPIC AUTO
[2019-08-12 12:38] LABS: CULTURE INDICATED? NO
[2019-08-12 12:45] LABS: AMPHETAMINE SCREEN, URINE Positive (Negative); BARBITURATE SCREEN, URINE Negative (Negative); BENZODIAZEPINE SCREEN, URINE Negative (Negative); CANNABINOID SCREEN, URINE Negative (Negative); COCAINE SCREEN, URINE Negative (Negative); METHADONE SCREEN, URINE Negative (Negative); OPIATE SCREEN, URINE Negative (Negative)
[2019-08-12] MEDS ORDERED: SODIUM CHLORIDE 0.9% 1,000 ML IV SCH (13:23)
[2019-08-12] MEDS ORDERED: PROMETHAZINE 25 MG/ML, 1ML IM PRN (13:30)
[2019-08-12] MEDS ORDERED: ONDANSETRON 2MG/ML, 2ML IVPush PRN (13:30)
[2019-08-12] MEDS ORDERED: HEPARIN 5,000 UNITS/ML, 1ML ONE (13:31)
[2019-08-12] MEDS: HEPARIN 5,000 UNITS/ML, 1ML SQ SCH (13:45)
[2019-08-12] MEDS: AMPICILLIN/SULBACTAM 1,500 MG in SODIUM CHLORIDE 0.9% 50 ML IV SCH (14:42)
[2019-08-12 15:45] VITALS: BP 143/91
[2019-08-12 16:10] VITALS: BP 154/95
[2019-08-12 19:39] VITALS: BP 128/72
[2019-08-13] MEDS: HEPARIN 5,000 UNITS/ML, 1ML SQ SCH ×3 (00:37→18:20)
[2019-08-13] MEDS: AMPICILLIN/SULBACTAM 1,500 MG in SODIUM CHLORIDE 0.9% 50 ML IV SCH ×4 (00:37→18:21)
[2019-08-13 07:29] VITALS: BP 132/90
[2019-08-13 09:12] LABS: BASOPHILS # (AUTO) 0.01 x10^3/uL (0-0.1); BASOPHILS % (AUTO) 0 % (0-1); EOSINOPHILS # (AUTO) 0.25 x10^3/uL (0-0.4); EOSINOPHILS % (AUTO) 3 % (1-7); LYMPHOCYTES % (AUTO) 26 % (22-44); MD NO; MEAN CORPUSCULAR HEMOGLOBIN 27.3 pg (27.0-34.8); MEAN CORPUSCULAR VOLUME 85.4 fL (80-100); MEAN PLATELET VOLUME 7.3 fL (7.4-10.4); MONOCYTES # (AUTO) 0.65 x10^3/uL (0.2-0.8); MONOCYTES % (AUTO) 8 % (2-9); NEUTROPHILS # (AUTO) 5.13 x10^3/uL (1.8-6.8); NEUTROPHILS % (AUTO) 63 % (42-75); PLATELET COUNT 357 x10^3/uL (130-400); RED BLOOD COUNT 4.13 x10^6/uL (3.82-5.3); RED CELL DISTRIBUTION WIDTH 15.7 % (9.6-15.2)
[2019-08-13 09:22] LABS: ALBUMIN 2.6 g/dL (3.4-5.0); ANION GAP 5 mmol/L (5-15); CALCIUM 8.3 mg/dL (8.5-10.1); CHLORIDE 107 mmol/L (98-107)
[2019-08-13 09:25] LABS: ALANINE AMINOTRANSFERASE 15 U/L (12-78); ALKALINE PHOSPHATASE 106 U/L (45-117); BILIRUBIN,TOTAL 0.4 mg/dL (0.2-1.0); TOTAL PROTEIN 7.3 g/dL (6.4-8.2)
[2019-08-13 14:00] VITALS: BP 134/77
[2019-08-13 21:07] VITALS: BP 150/92
[2019-08-14 00:08] VITALS: BP 146/89
[2019-08-14] MEDS: HEPARIN 5,000 UNITS/ML, 1ML SQ SCH ×5 (00:30→23:58)
[2019-08-14] MEDS: AMPICILLIN/SULBACTAM 1,500 MG in SODIUM CHLORIDE 0.9% 50 ML IV SCH ×5 (00:50→23:57)
[2019-08-14 06:03] LABS: BASOPHILS # (AUTO) 0.02 x10^3/uL (0-0.1); BASOPHILS % (AUTO) 0 % (0-1); EOSINOPHILS % (AUTO) 5 % (1-7); LYMPHOCYTES # (AUTO) 2.53 x10^3/uL (1-3.4); LYMPHOCYTES % (AUTO) 41 % (22-44); MD NO; MEAN CORPUSCULAR HEMOGLOBIN 27.9 pg (27.0-34.8); MEAN CORPUSCULAR HGB CONC 33.2 g/dL (32.4-35.8); MEAN PLATELET VOLUME 7.6 fL (7.4-10.4); MONOCYTES # (AUTO) 0.63 x10^3/uL (0.2-0.8); MONOCYTES % (AUTO) 10 % (2-9); NEUTROPHILS # (AUTO) 2.75 x10^3/uL (1.8-6.8); NEUTROPHILS % (AUTO) 44 % (42-75); PLATELET COUNT 383 x10^3/uL (130-400); RED BLOOD COUNT 4.29 x10^6/uL (3.82-5.3)
[2019-08-14 06:09] LABS: ANION GAP 7 mmol/L (5-15); CALCIUM 8.9 mg/dL (8.5-10.1); CHLORIDE 106 mmol/L (98-107); CREATININE 0.57 mg/dL (0.55-1.02)
[2019-08-14 07:23] VITALS: BP 147/69
[2019-08-14] MEDS ORDERED: LISINOPRIL 5 MG TABLET PO SCH (09:00)
[2019-08-14 12:43] VITALS: BP 147/96
[2019-08-14 19:10] VITALS: BP 139/88
[2019-08-15 02:16] VITALS: BP 158/85
[2019-08-15] MEDS: AMPICILLIN/SULBACTAM 1,500 MG in SODIUM CHLORIDE 0.9% 50 ML IV SCH ×3 (06:21→18:11)
[2019-08-15 07:20] VITALS: BP 134/87
[2019-08-15] MEDS ORDERED: LISINOPRIL 10 MG TABLET PO SCH (09:00)
[2019-08-15] MEDS: LISINOPRIL 20 MG TABLET PO SCH (09:21)
[2019-08-15] MEDS: HEPARIN 5,000 UNITS/ML, 1ML SQ SCH ×2 (09:22→16:30)
[2019-08-15] MEDS ORDERED: NICOTINE 21 MG/24 HR PATCH.TD24 ONE (13:18)
[2019-08-15] MEDS ORDERED: NICOTINE 21 MG/24 HR PATCH.TD24 TD SCH (13:30)
[2019-08-15 13:39] VITALS: BP 125/86
[2019-08-15 20:17] VITALS: BP 118/74
[2019-08-16] MEDS: HEPARIN 5,000 UNITS/ML, 1ML SQ SCH ×2 (00:23→08:29)
[2019-08-16] MEDS: AMPICILLIN/SULBACTAM 1,500 MG in SODIUM CHLORIDE 0.9% 50 ML IV SCH ×3 (00:24→12:07)
[2019-08-16 02:23] VITALS: BP 125/75
[2019-08-16 07:31] VITALS: BP 142/92
[2019-08-16] MEDS: LISINOPRIL 20 MG TABLET PO SCH (08:29)
[2019-08-16] MEDS ORDERED: DOXY100T PO (09:32)
[2019-08-16] MEDS ORDERED: LISI-170 PO (09:32)
== END 2019-08-16 13:15 | disposition home or self-care (01) | DRG 383 ==
LOC: ED 11:43 → EDIP 13:03 → 3N 15:26
PROVIDERS: ADMIT Internal Medicine; ATTEND Hospitalist
PROC: 0T9B70Z Drainage of Bladder with Drainage Device, Via Natural or Artificial Opening (ICD-10-PCS; principal; 2019-08-12)
DX: L03.116 Cellulitis of left lower limb (principal); G92 Toxic encephalopathy; I11.0 Hypertensive heart disease with heart failure; E87.1 Hypo-osmolality and hyponatremia; I50.32 Chronic diastolic (congestive) heart failure; L97.419 Non-pressure chronic ulcer of right heel and midfoot with unspecified severity; F15.10 Other stimulant abuse, uncomplicated; F31.9 Bipolar disorder, unspecified; M14.60 Charcot's joint, unspecified site; R31.29 Other microscopic hematuria
CPT/HCPCS: 36415; 70450; 71045; 80048; 80053; 80307; 81001; 82140; 82607; 84443; 85025; 87040; 93970; G0378; J1644; J0295; J7030

== ENCOUNTER 2019-09-17 18:54 | Emergency (ER) | payer MEDICAID ==
[~2019-09-17] VITALS: Ht 162.6 cm; Wt 98.0 kg
[~2019-09-17 18:54] MED LIST changes: +LISI-170 PO
--- NOTE | 2019-09-17 20:07 | NUR ---
PT RESTING ON GURNEY, PROVIDED PT WITH GOWN, CALL LIGHT WITHIN REACH
[2019-09-17 20:18] LABS: BASOPHILS # (AUTO) 0.01 x10^3/uL (0-0.1); BASOPHILS % (AUTO) 0 % (0-1); EOSINOPHILS # (AUTO) 0.18 x10^3/uL (0-0.4); EOSINOPHILS % (AUTO) 2 % (1-7); LYMPHOCYTES # (AUTO) 2.04 x10^3/uL (1-3.4); LYMPHOCYTES % (AUTO) 21 % (22-44); MD NO; MEAN CORPUSCULAR HEMOGLOBIN 27.1 pg (27.0-34.8); MEAN CORPUSCULAR HGB CONC 32.3 g/dL (32.4-35.8); MEAN CORPUSCULAR VOLUME 83.8 fL (80-100); MEAN PLATELET VOLUME 7.7 fL (7.4-10.4); MONOCYTES # (AUTO) 0.67 x10^3/uL (0.2-0.8); MONOCYTES % (AUTO) 7 % (2-9); NEUTROPHILS # (AUTO) 6.66 x10^3/uL (1.8-6.8); NEUTROPHILS % (AUTO) 70 % (42-75); PLATELET COUNT 389 x10^3/uL (130-400); RED BLOOD COUNT 4.06 x10^6/uL (3.82-5.3); RED CELL DISTRIBUTION WIDTH 16.7 % (9.6-15.2)
[2019-09-17 20:29] LABS: ALANINE AMINOTRANSFERASE 15 U/L (12-78); ALBUMIN 2.9 g/dL (3.4-5.0); ANION GAP 7 mmol/L (5-15); CALCIUM 8.7 mg/dL (8.5-10.1); CHLORIDE 104 mmol/L (98-107); CREATININE 0.69 mg/dL (0.55-1.02)
[2019-09-17 20:32] LABS: ALKALINE PHOSPHATASE 114 U/L (45-117); BILIRUBIN,TOTAL 0.2 mg/dL (0.2-1.0); TOTAL PROTEIN 8.2 g/dL (6.4-8.2)
--- NOTE | 2019-09-17 20:48 | NUR ---
pt resting on gurney snoring, arouses easily to verbal response, monitors in place, siderail sup x2. ultrasound at bedside
--- NOTE | 2019-09-17 21:35 | NUR ---
pt resting on gurney snoring, arouses with verbal command-by moaning and repositioning and quickly starts snoring again. monitors in place, call light within reach, will continue to monitor
--- NOTE | 2019-09-17 22:40 | NUR ---
PT A&O, ANSWERING ALL QUESTIONS APPROPRIATELY, PROVIDED PT WITH UNDERPNTS AND SOCKS PER KATE REQUEST, PT DENIES NEED FOR ASSISTANCE WITH GETTING DRESSED
[2019-09-17 22:48] VITALS: BP 139/83
== END 2019-09-17 23:20 | disposition home or self-care (01) ==
LOC: ED 19:57
DX: L03.116 Cellulitis of left lower limb (principal); L03.115 Cellulitis of right lower limb; G89.29 Other chronic pain; F15.129 Other stimulant abuse with intoxication, unspecified; Z98.51 Tubal ligation status; Z72.9 Problem related to lifestyle, unspecified
CPT/HCPCS: 36415; 80053; 80307; 85025; 87040; 93970; 99284

== ENCOUNTER 2019-10-18 21:32 | Emergency (ER) | payer MEDICAID ==
[~2019-10-18] VITALS: Ht 165.1 cm; Wt 98.0 kg
[~2019-10-18 21:32] MED LIST changes: +HYDR-3246 PO; -HYDR-36 PO
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
--- NOTE | 2019-10-18 21:58 | NUR ---
medical records requested.
[2019-10-18 22:18] LABS: BASOPHILS # (AUTO) 0.04 x10^3/uL (0-0.1); BASOPHILS % (AUTO) 1 % (0-1); EOSINOPHILS # (AUTO) 0.19 x10^3/uL (0-0.4); EOSINOPHILS % (AUTO) 3 % (1-7); LYMPHOCYTES # (AUTO) 1.83 x10^3/uL (1-3.4); LYMPHOCYTES % (AUTO) 33 % (22-44); MD NO; MEAN CORPUSCULAR HGB CONC 32.6 g/dL (32.4-35.8); MEAN PLATELET VOLUME 7.3 fL (7.4-10.4); MONOCYTES # (AUTO) 0.73 x10^3/uL (0.2-0.8); MONOCYTES % (AUTO) 13 % (2-9); NEUTROPHILS % (AUTO) 49 % (42-75); PLATELET COUNT 372 x10^3/uL (130-400); RED CELL DISTRIBUTION WIDTH 17.7 % (9.6-15.2)
[2019-10-18 22:24] LABS: ALBUMIN 3.1 g/dL (3.4-5.0); ANION GAP 3 mmol/L (5-15); CALCIUM 8.9 mg/dL (8.5-10.1); CHLORIDE 103 mmol/L (98-107); CREATININE 0.63 mg/dL (0.55-1.02)
--- NOTE | 2019-10-18 22:44 | NUR ---
DR CLEMENT HARDING.
--- NOTE | 2019-10-18 23:47 | NUR ---
EXTENSIVE CONVERSATION WITH ERP REGARDING ANTICIPATED FAILED OUTPATIENT FOLLOWUP. POC REMAINS DC. PT PROVIDED CLEAN CLOTHING AND IS DRESSED APPROPRIATELY FOR WEATHER. PT ABLE TO TRANSFER SELF FROM GURNEY TO WHEELCHAIR INDEPENDENTLY. DC EDUCATION PROVIDED, PT DEMONSTRATES UNDERSTANDING THOUGH IS RELUCTANT. PT PROVIDED INFORMATION/RESOURCES FOR RX FILL AND SHELTERS. TAXI VOUCHER PROVIDED FOR TRANSPORT. PER ERP, APPOINTMENT MADE WITH DR FAUSTIN ON PATIENT'S BEHALF TO REMOVE EXTERNAL FIXATION DEVICE. PT AWARE AND EMPHASIS PLACED ON IMPORTANCE OF KEEPING APPOINTMENT.
[2019-10-18 23:50] VITALS: BP 118/63
== END 2019-10-18 23:52 | disposition home or self-care (01) ==
LOC: ED 22:12
DX: M79.604 Pain in right leg (principal); G89.29 Other chronic pain; F15.129 Other stimulant abuse with intoxication, unspecified; Z72.9 Problem related to lifestyle, unspecified
CPT/HCPCS: 36415; 80048; 82040; 85025; 99284

== ENCOUNTER 2020-01-15 01:22 | Emergency (ER) | payer MEDICAID ==
--- NOTE | 2020-01-15 02:54 | NUR ---
PT RESTING IN BED AT THIS TIME. NO NEEDS EXPRESSED. MONITORS IN PLACE. WILL CONTINUE TO MONITOR
--- NOTE | 2020-01-15 03:56 | NUR ---
THIS TECH AND TECH DHIRAJ GOT PATIENT UP OUT OF BED. PATIENT WALKED TO HER [employer] CHAIR UNASSISTED. WHEN WE GOT OUTSIDE TO WAIT FOR THE TAXI PATIENT STARTED FALLING ASLEEP IN CHAIR LEANING TO THE LEFT. WORRIED PATIENT MIGHT FALL FROM VARSHA PATIENT WAS PLACED BACK INTO ED ROOM 18 PENDING FURTHER METABOLIZATION.
--- NOTE | 2020-01-15 04:00 | NUR ---
PT TO ED ROOM 18, RESTING IN WHEELCHAIR AT THIS TIME. ASKED PT IF SHE'D LIKE TO GET INTO THE GURNEY, PT APPEARS TO BE SLEEPING AND DOES NOT ANSWER AT THIS TIME.
--- NOTE | 2020-01-15 04:57 | NUR ---
PT CONTINUES TO SLEEP WITHOUT DISTRESS NOTED, BREATHING EQUAL AND UNLABORED, WILL CONTINUE TO MONITOR
--- NOTE | 2020-01-15 06:15 | NUR ---
Attempted to get pt up for DC. Every time pt asked to open eyes or pt physically moved, pt immedietely closes eyes and slouches forward or to the side. Pt not responding to questions or requests to wake up. Taxi voucher at bedside for DC. Pt not cooperating. fly tierFRANCISCO Urbina made aware
--- NOTE | 2020-01-15 06:55 | NUR ---
RECEIVED REPORT FROM SWEETIE. PT SITTING IN PERSONAL SCOOTER LEANING ON GURNEY WHILE SLEEPING, NAD WITH EQUAL CHEST RISE/FALL, NO NEEDS AT THIS TIME, CALL LIGHT WITHIN REACH.
--- NOTE | 2020-01-15 07:30 | NUR ---
PT AWAKE, MOVING AROUND ON SCOOTER, PT ASKED TO "CHARGE SCOOTER TO MAKE IT FAR ENOUGH TO A COFFEE SHOP OR SOMETHING", THIS RN WALKED PT TO LOBBY NEAR AN OUTLET, SECURITY AWARE PT WILL BE THERE FOR 30-45 MINS.
[2020-01-15 07:33] VITALS: BP 120/82
== END 2020-01-15 07:40 | disposition home or self-care (01) ==
LOC: ED 02:18
DX: F10.120 Alcohol abuse with intoxication, uncomplicated (principal); F15.10 Other stimulant abuse, uncomplicated; F17.210 Nicotine dependence, cigarettes, uncomplicated; Z72.9 Problem related to lifestyle, unspecified; Z98.51 Tubal ligation status; Y90.0 Blood alcohol level of less than 20 mg/100 ml
CPT/HCPCS: 99283; 99406

== ENCOUNTER 2020-02-24 07:18 | Emergency (ER) | payer MEDICAID ==
[~2020-02-24] VITALS: Ht 165.1 cm; Wt 98.0 kg
--- NOTE | 2020-02-24 07:45 | NUR ---
PT BROUGHT IN BY [facility] FROM [facility]. PT FOUND TO HAVE BROKEN CRACK/METH PIPE IN SWEATER. PT SWEATER REMOVED, NO OBVIOUS INJURY TO CHEST. PT HAS BULGE IN UMBILICAL AREA. PT AROUSABLE TO PAINFUL STIMULI OF STERNAL RUB. PT MUMBLES ARE INCOMPREHENSIBLE AND IS UNABLE TO ANSWER QUESTIONS AT THIS TIME. PT PUPILS ARE REACTIVE TO LIGHT, PT ALSO TURNS AWAY FROM LIGHT SHINED IN EYE. PT ABLE TO MOVE ALL EXTREMITIES. EMS BROUGHT PT WHEELCHAIR. PT WEARING BILAT BOOTS TO LOWER EXTREMITIES
--- NOTE | 2020-02-24 08:31 | NUR ---
LAB IN NOW DRAWING LABS. PT BLOOD SUGAR RECHECK, WNL. PT CONTINUES TO REST SOMULENTLY WITH AUDIBLE SNORES, VSS. WILL CONTINUE TO MONITOR.
[2020-02-24 08:42] LABS: BASOPHILS # (AUTO) 0.02 x10^3/uL (0-0.1); BASOPHILS % (AUTO) 0 % (0-1); EOSINOPHILS # (AUTO) 0.09 x10^3/uL (0-0.4); EOSINOPHILS % (AUTO) 1 % (1-7); LYMPHOCYTES # (AUTO) 1.62 x10^3/uL (1-3.4); LYMPHOCYTES % (AUTO) 21 % (22-44); MD NO; MEAN CORPUSCULAR HEMOGLOBIN 27.6 pg (27.0-34.8); MEAN CORPUSCULAR HGB CONC 32.2 g/dL (32.4-35.8); MEAN PLATELET VOLUME 7.6 fL (7.4-10.4); MONOCYTES # (AUTO) 0.68 x10^3/uL (0.2-0.8); MONOCYTES % (AUTO) 9 % (2-9); NEUTROPHILS # (AUTO) 5.52 x10^3/uL (1.8-6.8); NEUTROPHILS % (AUTO) 70 % (42-75); PLATELET COUNT 313 x10^3/uL (130-400); RED CELL DISTRIBUTION WIDTH 15.1 % (9.6-15.2)
[2020-02-24 08:53] LABS: ALANINE AMINOTRANSFERASE 19 U/L (12-78); ALBUMIN 3.5 g/dL (3.4-5.0); ANION GAP 6 mmol/L (5-15); CHLORIDE 105 mmol/L (98-107); CREATININE 0.51 mg/dL (0.55-1.02); SALICYLATE LEVEL 2.1 mg/dL (2.8-20.0)
[2020-02-24 08:56] LABS: ALKALINE PHOSPHATASE 123 U/L (45-117); BILIRUBIN,TOTAL 0.5 mg/dL (0.2-1.0); TOTAL PROTEIN 7.7 g/dL (6.4-8.2)
--- NOTE | 2020-02-24 09:31 | NUR ---
PT RESTING CALMLY IN BED ON HER RIGTH SIDE. VITALS STABLE. WILL CONTINUE TO MONITOR.
--- NOTE | 2020-02-24 10:10 | NUR ---
TASK RN NOTE: PT SLEEPING ON GURNEY, RESPS EVEN AND UNLABORED. VSS. PT TO PROVIDE URINE SAMPLE WHEN ABLE.
--- NOTE | 2020-02-24 11:22 | NUR ---
PT REMAINS AROUSABLE TO PAINFUL STIMULI. PT ABLE TO ANSWER QUESTIONS AT THIS TIME, PT DOES FALL ASLEEP SHORTLY AFTER BEING AROUSED. PT ABLE TO REPOSITION SELF IN GURNEY WITH MINIMAL ASSIST. PT ABLE TO STATE FULL NAME AND THAT SHE WAS IN THE HOSPITAL. PT STATED SHE WAS JUST SLEEPY AND FELL ASLEEP IN [facility]. PT DENIED ETOH AND DRUG USE AT THIS TIME. PT VSS, SEE CHARTED.
--- NOTE | 2020-02-24 12:14 | NUR ---
PT REPOSITIONED IN BED FOR COMFORT. PT WAS BENT OVER LEGS IN RNEY. PT SNOOZING HEAVILY, DOES NOT STAY AWAKE LONG AFTER BEING AROUSED.
--- NOTE | 2020-02-24 13:33 | NUR ---
PT WAS GOING TO CT, TECH DID NOT TAKE PT PT STATED SHE HAD TO PEE. PT ASSISTED TO BEDSIDE COMMODE. ABLE TO COLLECT URINE SAMPLE AND WALK URINE TO LAB. PT REPOSITIONED IN BED FOR COMFORT. PT SITTING UP IN R[place]OTON ON OWN. PT STATED SHE DID FALL, DOESN'T KNOW WHAT HAPPENED BUT STATED SHE DID FALL AND HIT HER HEAD. NO INJURY TO HEAD OBSERVED. PT IS A&OX3. PT STATED SHE ONLY AMBULATES WITH WHEELCHAIR. PT IS STABLE ON FEET IF ABLE TO LEAN ON SOMETHING. PT NOW REPOSITIONING SELF TO LAY BACK DOWN.
--- NOTE | 2020-02-24 13:37 | NUR ---
CALLED CT TO INFORM THEM PT HAS VOIDED. CT HERE NOW TO TAKE PT.
[2020-02-24 13:59] LABS: AMPHETAMINE SCREEN, URINE Positive (Negative); BARBITURATE SCREEN, URINE Negative (Negative); BENZODIAZEPINE SCREEN, URINE Negative (Negative); CANNABINOID SCREEN, URINE Negative (Negative); COCAINE SCREEN, URINE Negative (Negative); METHADONE SCREEN, URINE Negative (Negative); OPIATE SCREEN, URINE Negative (Negative)
[2020-02-24 15:07] VITALS: BP 143/74
--- NOTE | 2020-02-24 15:08 | NUR ---
BREAK RN: PT CONTINUES RESTING IN BED, AROUSABLE BUT UNABLE TO STAY AWAKE AND ALERT FOR LONG. VITALS STABLE, NO SIGNS OF DISTRESS. CALL LIGHT IN REACH.
--- NOTE | 2020-02-24 15:20 | NUR ---
BREAK RN: ATTEMPTED TO WAKE PT. AROUSABLE BUT CANNOT MAINTAIN. MEAL ORDERED FOR PT.
--- NOTE | 2020-02-24 16:06 | NUR ---
PT GIVEN MEAL TRAY, PT ABLE TO EAT WITHOUT PROBLEM. PT A&OX4 PT GIVEN TAXI VOUCHER FOR [facility]E ARRIVAL TO [facility].
== END 2020-02-24 16:07 | disposition home or self-care (01) ==
LOC: ED 12:51
DX: F15.10 Other stimulant abuse, uncomplicated (principal); R41.82 Altered mental status, unspecified; R53.83 Other fatigue; M19.90 Unspecified osteoarthritis, unspecified site; R00.0 Tachycardia, unspecified; R51 Headache
CPT/HCPCS: 70450; 80053; 80307; 82140; 82962; 85025; 93005; 99285